=== PATIENT | female | born 1980 | race Caucasian/White ===

== ENCOUNTER 2025-07-27 09:31 | Outpatient (CLI) | payer OTHER, SELFPAY ==
--- NOTE | 2025-07-27 09:41 | ECG_ITS ---
Test Date: 2025-07-27 09:53:40 Measurements Intervals [place] Rate: 74 P: 61 RI: 173 QRS: 51 QRSD: 86 T: 22 QT: 359 QTc: 399 Interpretive Statements SINUS RHYTHM LOW QRS VOLTAGE IN PRECORDIAL LEADS BASELINE ARTIFACT- I, II, III, AVR, AVL, AVF, V1, V3-V6 BORDERLINE ECG No previous ECG available for comparison Electronically Signed On 07-27-2025 10:03:38 PACKING ROOM INSPECTOR by Blane Keating D.O.
[2025-07-27 10:25] LABS: Alanine Aminotransferase 20 U/L (6-35); Albumin Level 4.3 g/dL (3.5-5.1); Alkaline Phosphatase 104 U/L (38-126); Anion Gap 5 mmol/L (4-12); Aspartate Amino Transferase 26 U/L (14-36); Bilirubin,Total 0.4 mg/dL (0.2-1.3); Blood Urea Nitrogen 18 mg/dL (7-17); Calcium 8.9 mg/dL (8.4-10.2); Carbon Dioxide 24 mmol/L (22-30); Chloride 110 mmol/L (98-107); Estimated Glomerular Filt Rate > 60; Glucose 68 mg/dL (65-110); Potassium 3.6 mmol/L (3.4-5.0); Sodium 139 mmol/L (137-145); Total Protein 7.3 g/dL (6.3-8.2)
== END 2025-07-27 09:32 | disposition home or self-care (01) ==
LOC: ANHSURGERY 09:38
PROVIDERS: PCP Internal Medicine Infectious Disease; Visit Provider Obstetrics & Gynecology
DX: Z01.818 Encounter for other preprocedural examination (principal); R94.31 Abnormal electrocardiogram [ECG] [EKG]; N92.0 Excessive and frequent menstruation with regular cycle; I10 Essential (primary) hypertension
CPT/HCPCS: 36415; 80053; 86850; 86900; 86901; 93005

== ENCOUNTER 2025-07-31 03:26 | Day surgery (SDC) | payer OTHER, SELFPAY ==
[2025-07-25 13:01] VITALS: BMI 27.5
--- NOTE | 2025-07-25 13:16 | SUR.PREOP ---
[facility] has started construction of its new state of the art ER which will open Spring 2026. With this, we anticipate parking may be a challenge for some our surgical patients and families. Parking spaces are limited but are available for all Surgical, obstetrics, and ER patients sharing this lot. If you arrive and find you are having a hard time finding a parking space, please note that we understand the challenges, please drive around the hospital and park near Hospital Entrance 1. When you enter this entrance, you can ask a volunteer to direct or take you back to the surgical waiting area to check in. We appreciate everyone?s understanding of these expected challenges while we build for your future. Report to the Outpatient Waiting Room, entrance under the green pavilion located off [address], at time 6:00a.m on date 07/31/2025 Planned Procedure Time: 7:30a.m.? Time changes happen often and if your time is changed the preop area will call you the afternoon before. - You and your visitor will be asked to self-screen and do not enter if you have any COVID symptoms. Please call surgeon if you need to reschedule. - A mask is optional within the hospital at this time. Patients may have clear liquids (water, carbonated beverages, clear teas, apple juice) until 3 hours prior to surgery with a maximum of 20 ounces. - No food from midnight until time of surgery and no smoking, or chewing tobacco (or any form of nicotine). No chewing gum, candy or mints. Take only the following medications with a SIP of water on the morning of surgery: Nifedipine DO NOT STOP ANY OF YOUR OTHER PRESCRIPTION MEDICATIONS PRIOR TO SURGERY EXCEPT THE FOLLOWING Hold all vitamins and supplements for 3 days per anesthesiologist. Medications to discontinue per physician Womans Multivitamin Date to take last dose07/28/2025 Please no make-up, nail ecuadorean, hairspray, perfume, deodorant, or body powder the day of surgery.? No jewelry (including any body piercings) or valuables the day of surgery, leave them at home.? Please take a shower or bath the night before, or the morning of, surgery with an antibacterial soap.? Wear comfortable, loose fitting clothing.? Children are encouraged to wear pajamas. - Jewelry must be removed prior to entering the operating room.? Rings and piercings that are not removed may be cut off. - The hospital will not accept responsibility for valuables.? - Please leave all valuables, including medications, at home the day of surgery. If you are going home after surgery, a licensed personal driver must drive you home.? - NO public transportation without another adult if you receive anesthesia. - We recommend that an adult stay with you for 24 hours following discharge. - We also recommend that you do not drive, make important decision, drink alcoholic beverages, or take any drugs that were not prescribed by your health care provider for at least 24 hours after your discharge time. For Pediatric surgeries, we recommend two adults accompany the child home. Follow any additional instructions given to you from your surgeon. Telephone instructions given to Silvia Jesus and asked if any additional questions and then verbalized understanding. Patient advised to call surgeon office or pre surgery nurse liaison [phone] if any additional questions.
[2025-07-31] VITALS (20 sets, daily range): BP systolic 118–145; BP diastolic 60–91; PULSE 76–98; RESP 14–26; TEMP 36.2–36.8; O2SAT 93–100
--- OUTSIDE RECORDS SUMMARY | 2025-07-31 03:29 | XMS_ITS | Clinical Summary ---
Author Organization [facility] Address [address] [place] [id number] Care Team Providers Care Pharmacy Stock Clerk Name Role Phone Unavailable Primary Care Provider Unavailabl e Social History Tobacco Use Types Packs/Day Years Used Date Smoking Tobacco: Never Assessed Comments Unknown Sex and Gender Information Value Date Recorded Sex Assigned at Not on file Legal Sex Female 4:03 PM CDT Gender Identity Not on file Sexual Orientation Not on file Plan of Treatment Health Maintenance Due Date Last Done Comments Cervical Cancer Screening Pa p Smear (Age 30 to 64) Every 3 Years 1981 Annual Physical 02/25/1984 Hepatitis C 1999 DTaP, Tdap and Td Vaccines ( 1 - Tdap) 02/25/2000 Hepatitis B Vaccines (1 of 3 - 19+ 3-dose series) 02/25/2000 HPV Vaccines (1 - 3-dose SCD M series) 02/25/2008 Cervical Cancer Screening Pa p with HPV Testing (Age 30 to 64) Every 5 Years 2011 Cervical Cancer Screening with HPV 2011 Mammogram Screening 2021 COVID-19 Vaccine (2024-2 6 season) 2025 Influenza Adult (#1) 2025 Hepatitis A Vaccines Aged Out No long er eligible based on patient's age to complete this topic Meningococcal B Vaccine Aged Out No l onger eligible based on patient's age to complete this topic Meningococcal Vaccine Aged Out No geni gonzalez eligible based on patient's age to complete this topic Pneumococcal Vaccine: Pediat rics (0 to 5 Years) and At-Risk Patients (6 to 49 Years) Aged Out No longer eligible b ased on patient's age to complete this topic RSV Immunizations Under 20 Months Aged Out No longer eligible based on patient's age to complete this topic
--- OUTSIDE RECORDS SUMMARY | 2025-07-31 03:29 | XMS_ITS | Data Portability ---
Author Organization [facility] Address [address] [place] [address] [place] [address] Assessment Encounter Date Assessment Date Assessment LastModified by Organization Details LastModified Time 07/02/2025 07/02/2025 Annual gynecological exam performed. [email or web address] Not available 07/02/2025 16:19:10 Plan of Treatment Reminders Order Date Submit Date Provider Last Modified By Organization Details Last Modified Time Details Appointments Robotic TLH 2024 07:30A Maday GOMEZ MD Not available Not available Not available SURG POST OP 2024 09:15A Maday GOMEZ MD Not available Not available Not available Lab pap, IG + HR HPV - HPV regardles s but if HPV is positive need subtyping 16,18/45 2024 025 [facility] (Lab), [address], [place], [address], 07/05/2025 14:21:18 Referral breast surgery referral 2024 025 KALI Regan MD, [address], [facility], [place], [address], 07/25/2025 21:30:27 Procedures None recorded. Surgeries robotic assisted hysterect kodak with salpingec christiano (SURG) 2024 025 API-[id number] [facility], [address], [place], [address], 06/12/2025 19:26:49 Imaging US, pelvis 2024 025 [email or web address], [address], [place], [address], 07/18/2025 11:38:27 US, transvagi nal 2024 025 [email or web address], [address], [place], [address], 07/18/2025 11:38:27 Medication Orders None recorded. Patient TargetsNo targets recorded. Patient InstructionsNo instructions recorded. Reason for Referral Breast Surgery Referral for Mass of left breast Referring Physician: Sarah Soares, MANGLE CATCHER, Encounter Date: 07/02/2025 Results Created Date Observation Date Name Description Value Unit Range Abnormal Flag Note LastModifiedBy Organization Detail LastModifiedTime 07/02/2007/02/2025 IMAGE GUIDE D PAP AND HPV REGAR DLESS image guided Pap, HPV regardless of Pap result SEE RESULT S BELOW CASE REPOR T: Cytol ogy Gynec ologi sam Repor t Case: [id number] Autho rizin g Provi marah: Sarah Soares NP Colle cted: 07/02 1553 Order ing Locat ion: [place] [facility] Recei alexandre: 07/03 0742 First Scree n: Ashwini Hurtado , CT Speci men: Scree sidra Pap - Image d, Cervi x STATE MENT OF ADEQU ACY: Satis facto ry for evalu ation Trans forma tion zone compo nent prese nt ----- ----- ----- ----- ----- ----- ----- ----- ----- ----- ----- ----- ----- ----- ----- ----- ----- ---- FINAL DIAGN OSIS: Negat lonnie for Intra epith elial Lesio n or Milad jones (NIL) . Elect wendie moore d by Ashwini Hurtado , CT on 07/05 at 1308 CASING SOAKER ----- ----- ----- ----- ----- ----- ----- ----- ----- ----- ----- ----- ----- ----- ----- ----- ----- ---- HPV RESUL TS: HPV mRNA E6/E7 : No HPV mRNA Detec leandra NOTE: This high risk HPV mRNA assay detec ts fourt een high- risk HPV types (16, 18, 31, 33, 35, 39, 45, 51, 52, 56, 58, 59, 66, 68) witho ut diffe renti ation . COMME NT: This speci men was revie wed by a Cytot echno logis t and/o r Patho logis t (as indic ated in this repor t) after evalu ation using the Thinp rep Imagi ng Syste m. CLINI SAM INFOR MATIO N: Menst rual Statu s: LMP (if appli cable ): Clini sam Histo ry/Pr eviou s Pap: Type of Neopl violet (if appli cable ): Signi fican t Clini sam Findi ngs: Other Histo ry: Hormo peter (if appli cable ): PAP EDUCA ELIGIO L NOTE: The Pap Test is a scree sidra test with an inher ent false negat lonnie rate. Liqui d-bas ed sampl ing may decre ase, but will not elimi irvin, false negat lonnie resul ts. A negat lonnie resul t does not precl ude the prese nce and/o r devel opmen t of disea se, since the prese nce of abnor mal cells in the sampl e depen ds on the locat ion of the lesio n and sampl ing techn ique. [place] nued regul ar scree sidra is the best metho d of cance r preve ntion . If repor leandra cytol ogic findi ng do not corre late with physi sam and/o r histo rical findi ngs, fur er inves tigat ion is recom jeffery d, as clini huyen walker nted. Not Available [facility] (Lab) [address], [place], [address], 07/05/2025 14:21:18 07/17/2007/17/2025 US, pelvi s No observ ation record ed. [facility] [address], [place], [address], 07/17/2025 18:14:30 07/17/2007/17/2025 US, trans vagin al No observ ation record ed. [facility] [address], [place], [address], 07/17/2025 18:14:39 07/17/2007/17/2025 US, pelvi s No observ ation record ed. [email or web address] [address], [place], [address], 07/18/2025 16:29:15 Result Notes None recorded. Procedures Surgical History Date Name Laterality Status Provider Name and Address Organization Details Recorded Time 07/25/20 Date of Last Mammogram completed Mallory Starks [facility] 07/26/2025 12:04:00 excision of mass of neck completed [facility] 07/02/2025 11:16:24 section completed [facility] 07/02/2025 11:16:34 section completed [facility] 07/02/2025 11:16:40 tonsillectomy completed [facility] 07/02/2025 11:16:49 Imaging Results None recorded. Procedure Notes None recorded. Medical Equipment None Reported. Allergies Allergen ID Allergen Name Allergen Category Reaction Reaction Severity Criticality Documentation Date Start Date Code Code System Note Provider Name and Address Organization Details Recorded Time 61290 cyclobenz aprine hydrochlo ride medicatio n itching severe high 06/07/2025 58790 RxNorm Zunilda lisa [facility] 11:33:12 14379 tramadol medicatio n Not available Not available Not available 07/09/2025 65056 RxNorm Not Available kali [employer] External Data [employer] - prod 13:58:25 05956 cyclobenz aprine hydrochlo ride medicatio n itching severe high 07/09/2025 42642 RxNorm Not Available kali [employer] External [employer] - prod 13:58:25 96417 citalopra m medicatio n nausea mild high 07/09/20252015 2556 RxNorm Not Available glen jean [employer] External Data [employer] - prod 13:58:25 Medications Name Sig Start Date Stop Date Status Note LastModified by Organization Details LastModified Time atorvastatin 40 mg tablet Take 1 tablet every day by oral route. active Not Available Not Available No t Available nifedipine ER 60 mg tablet,extende d release Take 1 tablet every day by oral route. active Not Available Not Available No t Available escitalopram 20 mg tablet Take 1 tablet every day by oral route. active Not Available Not Available No t Available Vitals Date Recorded Body height Body mass index (BMI) Body weight Systolic And Diastolic Provider Name and Address Organization Details Last Updated DateTime 06/07/2025 172.72 cm 28.3 kg/m2 59765.18 g 140/85 mm[Hg] Zunilda Jean [facility] 06/07/2025 11:32:39 Date Recorded Body height Body mass index (BMI) Body weight Systolic And Diastolic Provider Name and Address Organization Details Last Updated DateTime 07/02/2025 172.72 cm 28 kg/m2 96686 g 161/93 mm[Hg] Giulia Liu [facility] 07/02/2025 11:06:32 Date Recorded Body height Body mass index (BMI) Body weight Systolic And Diastolic Provider Name and Address Organization Details Last Updated DateTime 07/26/2025 172.72 cm 28 kg/m2 87858 g 131/80 mm[Hg] Mallory Starks [facility] 07/26/2025 12:03:30 Date Recorded Body height Body mass index (BMI) Body weight Systolic And Diastolic Provider Name and Address Organization Details Last Updated DateTime 07/27/2025 172.72 cm 27.7 kg/m2 83402.81 g 151/88 mm[Hg] Mallory Atkinsoner [facility] 07/27/2025 09:58:17 Social History Question Answer Notes LastModified by Organizat ion Details LastModified Time Tobacco Smoking Status Former Smoker Zunilda Jean sloan, [facility] 06/07/2025 11:40:56 Do You Have An Advance Directive? No [email or web address] Information n ot available 06/07/2025 Are You Blind Or Do You Have Difficulty Seeing? No [email or web address] Information n ot available 06/07/2025 What Is Your Level Of Caffeine Consumption? Moderate [email or web address] Information not available 06/07/2025 In The 14 Days Before Symptom Onset, Have You Had Close Contact With A Laboratory-confirm ed COVID-19 While That Case Was Ill? No Information n ot available 06/07/2025 In The 14 Days Before Symptom Onset, Have You Had Close Contact With A Person Who Is Under Investigation For COVID-19 While That Person Was Ill? No [email or web address] Information not available 06/07/2025 Have You Been To An Area Known To Be High Risk For COVID-19? No Information not available 06/07/2025 Are You Deaf Or Do You Have Serious Difficulty Hearing? No [email or web address] Information not available 06/07/2025 What Type Of Diet Are You Following? REGULAR [email or web address] Information n ot available 06/07/2025 What Is The Highest Grade Or Level Of School You Have Completed Or The Highest Degree You Have Received? PS32266-0 [email or web address] Information not available 06/07/2025 Are There Any Guns Present In Your Home? No [email or web address] Information not available 06/07/2025 What Is Your Current Pack Years? [email or web address] Information not available 06/07/2025 Do You Use Protection During Sex? No [email or web address] Information not available 06/07/2025 Do You Use Your Seat Belt Or Car Seat Routinely? Yes Information not available 06/07/2025 Are You Sexually Active? Yes [email or web address] Information not available 06/07/2025 Do You Have Smoke And Carbon Monoxide Detectors In Your Home? Yes [email or web address] Information not available 06/07/2025 At What Age Did You Start Smoking Tobacco? 13 [email or web address] Information not available 06/07/2025 How Much Tobacco Do You Smoke? 0.5 PPD [email or web address] Information not available 06/07/2025 Do You Use Sunscreen Routinely? Yes [email or web address] Information not available 06/07/2025 Has Tobacco Cessation Counseling Been Provided? No [email or web address] Information not available 06/07/2025 How Many Years Have You Smoked Tobacco? 30 [email or web address] Information not available 06/07/2025 Do You Have Difficulty Walking Or Climbing Stairs? No Information not available 06/07/2025 Sex: Unknown Functional Status Question Answer Note LastModified by Organizat ion Details LastModified Time Do you use any illicit or recreational drugs? No [email or web address] Information not available 06/07/2025 Do you or have you ever used any other forms of tobacco or nicotine? No Information not available 06/07/2025 What is your level of alcohol consumption? None [email or web address] Information not available 06/07/2025 Are you currently employed? No [email or web address] Information not available 06/07/2025 Are you able to walk independently without assistance or assistive devices? YESWOREST [email or web address] Information not available 06/07/2025 Are you able to care for yourself independently? Yes [email or web address] Information not available 06/07/2025 Do you have difficulty dressing, bathing, grooming, or toileting? No [email or web address] Information not available 06/07/2025 Mental Status Question Answer Note LastModified by Organization D etails LastModified Time Do you feel stressed (tense, restless, nervous, or anxious, or unable to sleep at night)? [id number] [email or web address] Information not available 06/07/2025 Family History Relationship Description Onset Age of this Age Resolved Age Notes LastModified by Organization Details LastModified Time Maternal Aunt Malignant neoplasm of breast [email or web address] Not available 2024 11:14:15 Mother Malignant neoplasm of colon Not available 2024 11:14:28 Maternal Grandmother Malignant neoplasm of colon Not available 2024 11:14:28 Paternal Grandmother Myocardial infarction Not available 07/02 11:15:07 Father Schizophreni a Not available 2024 11:15:17 Medical History Condition Response Anxiety Disorder Y High Cholesterol Y Depression/ depression Y Heart Disease Y Hypertension Y Gynecological History Statement/Question Response Abnormal Pap N Flow Heavy Date of Last Mammogram 07/25/2025 Date of LMP 07/21/2025 On BCP's at Conception? N STIs/STDs N Was last menstrual period normal N HPV Vaccine N Duration of Flow (days) 6 Current Control Method None Age at First Child 20 Are cycles usually normal N Date of Last Colonoscopy Frequency of Cycle (Q days) 28 Most Recent Bone Density Sexually Active? Y Menses Monthly Y Date of DEXA bone scan Age of first menstrual cycle 13 Date of Last Pap Smear Sexual Problems? N LMP Approximate Obstetrics History GPAL:G 4 P 2 0 2 2 Type Value Full Term 2 Spontaneous 2 Living 2 Total 4 Past Encounters Encounter ID Performer Location Encounter Start Date Encounter Closed Date Diagnosis/Indication Diagnosis SNOMED-CT Code Diagnosis ICD10 Code Diagnosis IMO Codes Diagnosis Note [id number] Eugenio Gomez MD [place] [address] [address] 06/07/2025 11:16:04 06/07/2025 12:07:48 Menorrhagia 353783300 N92.0 [id number] This patient is a 45-year-ol d female presents for heavy vaginal bleeding. She has longstandi ng very heavy bleeding. Her menses are regular. However, they require double protection . Patient has accidents, getting blood on her bedding and clothing. Is affected work. She changes a pad or tampon every hour. She leaks blood around the pad and tampon. This bleeding has a profound impact on her quality of life and her activities of daily living. WE DISCUSSED TREATMENT OPTIONS IN DETAIL. We discussed medical treatment options. She has already failed some medical treatment options to include control pills. Patient would like definitive surgical treatment. This profoundly affects her quality of life and activities daily living. She would like to move forward with hysterecto my and she would like to keep her ovaries. We agreed to robotic assisted hysterecto my with bilateral salpingect kodak. The patient understand s the procedure. The procedure was described to the patient in great detail. the patient also understand s the risks. The risks were also explained in detail. She understand s that injuries May occur during surgery. She understand s these injuries can result in hospitaliz ation, more surgery, and severe illness. She understand s there is risk of hemorrhage and infection. I spent over 30 minutes on the patient's care in total [id number] МАРИНА Luciano [place] [address] [address] 07/02/2025 10:51:23 07/02/2025 16:23:42 Gynecologic examination [id number] Z01.850 [id number] EB - declined, she is scheduled for TLH, BS with Dr. Martinez -done todaySTI screen - declinedMa mmogram - UTCTolon cancer screening - n/aRoutine labs - PCPBP precaution s discussed , encouraged PCP f/uRTC in 1 yr or sooner if needed Suggested Calcium with Vitamin D daily. Patient advised to get an annual flu shot in the fall and she could obtain at local pharmacy. Also to obtain TDap vaccinatio n if you have not had one in the last 10 years. Recommend yearly mammograms . Encouraged monthly self breast exams. Encourage safe sexual practices, to use condoms and limit partners if not already in a monogamous relationsh ip. Engage in regular exercise. Avoid tobacco and illicit drugs. This lifestyle behavior pattern will lead to less health conditions and longer life span. If BMI greater than 25 dietary consult advised. All questions have been answered. Mass of left breast 1224 [id number] N63.20 [id number] Records request faxed for recent diagnostic breast imagingref erral placed to breast specialist [id number] Eugenio Gomez MD [place] [address] [address] 07/17/2025 15:28:51 07/17/2025 16:23:32 Menorrhagia [id number] N92.0 [id number] This patient is a 45-year-ol d female presents for heavy vaginal bleeding. She has longstandi ng very heavy bleeding. Her menses are regular. However, they require double protection . Patient has accidents, getting blood on her bedding and clothing. Is affected work. She changes a pad or tampon every hour. She leaks blood around the pad and tampon. This bleeding has a profound impact on her quality of life and her activities of daily living. WE DISCUSSED TREATMENT OPTIONS IN DETAIL. We discussed medical treatment options. She has already failed some medical treatment options to include control pills. Patient would like definitive surgical treatment. This profoundly affects her quality of life and activities daily living. She would like to move forward with hysterecto my and she would like to keep her ovaries. We agreed to robotic assisted hysterecto my with bilateral salpingect kodak. The patient understand s the procedure. The procedure was described to the patient in great detail. the patient also understand s the risks. The risks were also explained in detail. She understand s that injuries May occur during surgery. She understand s these injuries can result in hospitaliz ation, more surgery, and severe illness. She understand s there is risk of hemorrhage and infection. I spent over 30 minutes on the patient's care in total [id number] Eugenio Gomez MD [place] [address] [address] 07/26/2025 11:31:54 07/27/2025 16:57:13 [id number] Eugenio Gomez MD [place] [address] [address] 07/27/2025 09:42:58 07/27/2025 11:30:30 Menorrhagia [id number] N92.0 [id number] This patient is a 45-year-ol d female with severe menorrhagi a. We have agreed to perform robotic assisted hysterecto my and bilateral salpingect kodak. She understand s the risks, benefits, and alternativ es. She has completed the informed consent process and is ready to proceed. Health Concerns Section Related Observation LastModified by Organization Petey garcía LastModified Time None Recorded Concern Status LastModified by Organization Details LastModified Time None Recorded Advance Directives Directive N: Payers Insurance Date Sequence Insurance Name Policy Number Policy Guzmán Covered Member ID Guzmán Member ID Guarantor Name 07/30/2025 1 [facility] - DOS ON OR AFTER 21 (MEDICAID REPLACEMENT - HMO) Silviabryce Jesus [id number] Silvia Acup Notes Date Note Type Note Provider Name and Address Organization Details Recorded Time 5 text/html This patient is a 45-year-old female presents for heavy vaginal bleeding. She has longstanding very heavy bleeding. Her menses are regular. However, they require double protection. Patient has accidents, getting blood on her bedding and clothing. Is affected work. She changes a pad or tampon every hour. She leaks blood around the pad and tampon. This bleeding has a profound impact on her quality of life and her activities of daily living. WE DISCUSSED TREATMENT OPTIONS IN DETAIL. We discussed medical treatment options. She has already failed some medical treatment options to include control pills. Patient would like definitive surgical treatment. This profoundly affects her quality of life and activities daily living. She would like to move forward with hysterectomy and she would like to keep her ovaries. We agreed to robotic assisted hysterectomy with bilateral salpingectomy. The patient understands the procedure. The procedure was described to the patient in great detail. the patient also understands the risks. The risks were also explained in detail. She understands that injuries May occur during surgery. She understands these injuries can result in hospitalization, more surgery, and severe illness. She understands there is risk of hemorrhage and infection. I spent over 30 minutes on the patient's care in total Eugenio Gomez MD [address], [place], [address], [facility] 06/07/2025 12:04:36 5 text/html Annual GYNReported by PatientGenitourinary symptomsFor menstrual cycle, patient reportsnormal menses. For urinary symptoms, patient reportsno hematuriaandno incontinence. For vulva, patient reportsno genital lesion. For vagina, patient reportsnormal vaginal discharge.Breast symptomsFor breast, patient reportsno breast pain,no breast lump, andno nipple discharge.Endocrine symptomsFor sexual complaints, patient reportsno sexual complaints,no pain during intercourse, andnormal libido. For menopausal symptoms, patient reportsno menopausal symptomsandnormal vaginal lubrication.Psychological symptomsFor psychological symptoms, patient reportsno depression,no anxiety, andno pmdd.Preventative measuresFor preventive measures, patient reportsencourage self breast examination,encourage regular exercise,encourage no tobacco use, andencourage regular mammograms starting age 40.45yo Geraldine is unsure when her last pap smear wasPlanning DEV, BS with Dr. Gomez next month for AUB - periods heavy/painful She had diagnostic breast imaging done 03/2023 (told bilateral breast cyst and to f/u with breast specialist) needs referral. МАРИНА Luciano [address], [place], [address], [facility] 07/02/2025 16:20:54 5 text/html This patient is a 45-year-old female with severe menorrhagia. We have agreed to perform robotic assisted hysterectomy and bilateral salpingectomy. She understands the risks, benefits, and alternatives. She has completed the informed consent process and is ready to proceed. The patient understands the procedure. The procedure was described to the patient in great detail. the patient also understands the risks. The risks were also explained in detail. She understands that injuries May occur during surgery. She understands these injuries can result in hospitalization, more surgery, and severe illness. She understands there is risk of hemorrhage and infection. Eugenio Gomez MD [address], [place], [address], [facility] 07/27/2025 11:04:44 OBGyn Episode Ob Episode Information Episode Created Date Number of Fetuses Patient Bloodtype Patient rh Status Prepregnancy Weight lbs Domestic Partner Domestic Partner Phone Father Name [employer] Status 06/07/20 25 1 CLOSED Fetus Data First Name Last Name Admitted to NICU Weight (g) Sex Living Outcome Pediatric Complications Fetus ID Race Codes Race Delivery Type 2267.96 F Full Term [id number] Primary Tomás Calculation Initial Tomás Date Initial Exam Date Initial Exam Provider Initial Ultrasound Date Last Menstrual Period Date Ultra Sound Weeks Gestation 0 Eighteen To Twenty Week Tomás Update Ultra Sound Date Fundal Height At Umbil Quickening Date Ultra Sound Latest Weeks Gestation Final Tomás Confirmed By Final Tomás Confirmed Date Final Tomás Date Ultra Sound Latest Days Gestation 0 0 Menstrual History Last Menstrual Date Menses Monthly On Bcp Conception Prior Menses Frequency Hcg Plus Date Menarche Onset Age Delivery Information Delivery Date Delivery Type Labor Anesthesia Weeks Gestation Incision Type Labor Labor Length Hrs Delivered By Post Complications Tubal Sterilization Discharge Date Comments 1 false Discharge Information Feeding Method Contraceptive Method Maternal HG B and HCT Levels Ob Episode Information Episode Created Date Number of Fetuses Patient Bloodtype Patient rh Status Prepregnancy Weight lbs Domestic Partner Domestic Partner Phone Father Name [employer] Status 07/02/20 25 1 CLOSED Fetus Data First Name Last Name Admitted to NICU Weight (g) Sex Living Outcome Pediatric Complications Fetus ID Race Codes Race Delivery Type , Spontane ous [id number] Tomás Calculation Initial Tomás Date Initial Exam Date Initial Exam Provider Initial Ultrasound Date Last Menstrual Period Date Ultra Sound Weeks Gestation 0 Eighteen To Twenty Week Tomás Update Ultra Sound Date Fundal Height At Umbil Quickening Date Ultra Sound Latest Weeks Gestation Final Tomás Confirmed By Final Tomás Confirmed Date Final Tomás Date Ultra Sound Latest Days Gestation 0 0 Menstrual History Last Menstrual Date Menses Monthly On Bcp Conception Prior Menses Frequency Hcg Plus Date Menarche Onset Age Delivery Information Delivery Date Delivery Type Labor Anesthesia Weeks Gestation Incision Type Labor Labor Length Hrs Delivered By Post Complications Tubal Sterilization Discharge Date Comments 7 Discharge Information Feeding Method Contraceptive Method Maternal HG B and HCT Levels Ob Episode Information Episode Created Date Number of Fetuses Patient Bloodtype Patient rh Status Prepregnancy Weight lbs Domestic Partner Domestic Partner Phone Father Name [employer] Status 06/07/20 25 1 CLOSED Fetus Data First Name Last Name Admitted to NICU Weight (g) Sex Living Outcome Pediatric Complications Fetus ID Race Codes Race Delivery Type 793.786 [place] Prematur [place] 83472 Vaginal Delivery Tomás Calculation Initial Tomás Date Initial Exam Date Initial Exam Provider Initial Ultrasound Date Last Menstrual Period Date Ultra Sound Weeks Gestation 0 Eighteen To Twenty Week Tomás Update Ultra Sound Date Fundal Height At Umbil Quickening Date Ultra Sound Latest Weeks Gestation Final Tomás Confirmed By Final Tomás Confirmed Date Final Tomás Date Ultra Sound Latest Days Gestation 0 0 Menstrual History Last Menstrual Date Menses Monthly On Bcp Conception Prior Menses Frequency Hcg Plus Date Menarche Onset Age Delivery Information Delivery Date Delivery Type Labor Anesthesia Weeks Gestation Incision Type Labor Labor Length Hrs Delivered By Post Complications Tubal Sterilization Discharge Date Comments 1 28 true Discharge Information Feeding Method Contraceptive Method Maternal HG B and HCT Levels Ob Episode Information Episode Created Date Number of Fetuses Patient Bloodtype Patient rh Status Prepregnancy Weight lbs Domestic Partner Domestic Partner Phone Father Name [employer] Status 06/07/20 25 1 CLOSED Fetus Data First Name Last Name Admitted to NICU Weight (g) Sex Living Outcome Pediatric Complications Fetus ID Race Codes Race Delivery Type 2721.55 2 M Prematur e 15704 Repeat Tomás Calculation Initial Tomás Date Initial Exam Date Initial Exam Provider Initial Ultrasound Date Last Menstrual Period Date Ultra Sound Weeks Gestation 0 Eighteen To Twenty Week Tomás Update Ultra Sound Date Fundal Height At Umbil Quickening Date Ultra Sound Latest Weeks Gestation Final Tomás Confirmed By Final Tomás Confirmed Date Final Tomás Date Ultra Sound Latest Days Gestation 0 0 Menstrual History Last Menstrual Date Menses Monthly On Bcp Conception Prior Menses Frequency Hcg Plus Date Menarche Onset Age Delivery Information Delivery Date Delivery Type Labor Anesthesia Weeks Gestation Incision Type Labor Labor Length Hrs Delivered By Post Complications Tubal Sterilization Discharge Date Comments 0 true Discharge Information Feeding Method Contraceptive Method Maternal HG B and HCT Levels
--- OUTSIDE RECORDS SUMMARY | 2025-07-31 03:29 | XMS_ITS | Continuity of Care Document ---
Author Organization [facility] Address [address] [place] [address] Assessment No assessment recorded. Plan of Treatment Reminders Order Date Submit Date Provider Last Modified By Organization Details Last Modified Time Details Appointments Robotic TLH 2024 07:30A Maday GOMEZ MD Not available Not available Not available SURG POST OP 2024 09:15A Maday GOMEZ MD Not available Not available Not available Lab None recorded . Referral None recorded . Procedures None recorded . Surgeries None recorded . Imaging None recorded . Medication Orders None recorded . Patient TargetsNo targets recorded. Patient InstructionsNo instructions recorded. Reason for Referral None Reported. Results Created Date Observation Date Name Description Value Unit Range Abnormal Flag Note LastModifiedBy Organization Detail LastModifiedTime 07/02/20 25 07/02/2025 IMAGE GUIDE D PAP AND HPV REGAR DLESS image guided Pap, HPV regardless of Pap result SEE RESULT S BELOW CASE REPOR T: Cytol ogy Gynec ologi sam Repor t Case: [id number] Autho marcell stone Provi marah: Sarah Soares, JEFFERSON Colle cted: 07/02 1553 Order ing Locat ion: [place] [facility] Recei alexandre: 07/03 0742 First Scree n: Vishnu r, Ashwini , CT Speci men: Scree sidra Pap - Image d, Cervi x STATE MENT OF ADEQU ACY: Satis facto ry for evalu ation Trans forma tion zone compo nent prese nt ----- ----- ----- ----- ----- ----- ----- ----- ----- ----- ----- ----- ----- ----- ----- ----- ----- ---- FINAL DIAGN OSIS: Negat lonnie for Intra epith elial Lesio amrik or Milad jones (NIL) . Elect wendie moore d by Ashwini Hurtado , CT on 07/05 at 1308 [employer] [employer] TENDER ----- ----- ----- ----- ----- ----- ----- [...] sam and/o r histo rical findi ngs, furth er inves tigat ion is recom jeffery d, as clini huyen walker nted. Not Available [facility] (Lab) [address], [place], [address], 07/05/2025 14:21:18 07/17/2007/17/2025 US, pelvi s No observ ation record ed. [facility] [address], [place], [address], 07/17/2025 18:14:30 07/17/2007/17/2025 US, trans vagin al No observ ation record ed. [facility] [address], [place], [address], 07/17/2025 18:14:39 07/17/2007/17/2025 US, pelvi s No observ ation record ed. [email or web address] [address], [place], [address], 07/18/2025 16:29:15 Result Notes None recorded. Procedures Surgical History Date Name Laterality Status Provider Name and Address Organization Details Recorded Time 07/25/20 Date of Last Mammogram completed Mallory Starks [facility] 07/26/2025 12:04:00 excision of mass of neck completed [facility] 07/02/2025 11:16:24 section completed [facility] 07/02/2025 11:16:34 section completed [facility] 07/02/2025 11:16:40 tonsillectomy completed Giulia Liu [facility] 07/02/2025 11:16:49 Imaging Results None recorded. Procedure Notes None recorded. Medical Equipment None Reported. Allergies Allergen ID Allergen Name Allergen Category Reaction Reaction Severity Criticality Documentation Date Start Date Code Code System Note Provider Name and Address Organization Details Recorded Time 11862 cyclobenz aprine hydrochlo ride medicatio n itching severe high 06/07/2025 59933 RxNorm Zunilda lisa [facility] 11:33:12 49597 tramadol medicatio n Not available Not available Not available 07/09/2025 49348 RxNorm Not Available [employer] - prod 13:58:25 66989 cyclobenz aprine hydrochlo ride medicatio n itching severe high 07/09/2025 09150 RxNorm Not Available [employer] - prod 13:58:25 74315 citalopra m medicatio n nausea mild high 07/09/20252015 2556 RxNorm Not Available [employer] - [employer] 13:58:25 Medications Name Sig Start Date Stop [...] Updated DateTime 07/26/2025 172.72 cm 28 kg/m2 30751 g 131/80 mm[Hg] Mallory Starks [facility] 07/26/2025 12:03:30 Date Recorded Body height Body mass index (BMI) Body weight Systolic And Diastolic Provider Name and Address Organization Details Last Updated DateTime 07/27/2025 172.72 cm 27.7 kg/m2 78504.81 g 151/88 mm[Hg] Mallory Starks [facility] 07/27/2025 09:58:17 Social History Question Answer Notes LastModified by Organizat ion Details LastModified Time Tobacco Smoking Status Former Smoker Zunilda Jean sloan, [facility] 06/07/2025 11:40:56 Do You Have An Advance Directive? No [email or web address] Information n ot available 06/07/2025 Are You Blind Or Do You Have Difficulty Seeing? No [email or web address] Information n ot available 06/07/2025 What Is Your Level Of Caffeine Consumption? Moderate Information not available 06/07/2025 In The 14 Days Before Symptom Onset, Have You Had Close Contact With A Laboratory-confirm ed COVID-19 While That Case Was Ill? No [email or web address] Information n ot available 06/07/2025 In The 14 Days Before Symptom Onset, Have You Had Close Contact With A Person Who Is Under Investigation For COVID-19 While That Person Was Ill? No [email or web address] Information not available 06/07/2025 Have You Been To An Area Known To Be High Risk For COVID-19? No [email or web address] Information not available 06/07/2025 Are You Deaf Or Do You Have Serious Difficulty Hearing? No [email or web address] Information not available 06/07/2025 What Type Of Diet Are You Following? REGULAR [email or web address] Information n ot available 06/07/2025 What Is The Highest Grade Or Level Of School You Have Completed Or The Highest Degree You Have Received? [id number] [email or web address] Information not available 06/07/2025 Are There Any Guns Present In Your Home? No Information not available 06/07/2025 What Is Your Current Pack Years? 30ormorepacky ears Information not available 06/07/2025 Do You Use Protection During Sex? No [email or web address] Information not available 06/07/2025 Do You Use Your Seat Belt Or Car Seat Routinely? Yes Information not available 06/07/2025 Are You Sexually Active? Yes [email or web address] Information not available 06/07/2025 Do You Have Smoke And Carbon Monoxide Detectors In Your Home? Yes [email or web address] Information not available 06/07/2025 At What Age Did You Start Smoking Tobacco? 13 [email or web address] Information not available 06/07/2025 How Much Tobacco Do You Smoke? 0.5 PPD [email or web address] Information not available 06/07/2025 Do You Use Sunscreen Routinely? Yes [email or web address] Information not available 06/07/2025 Has Tobacco Cessation Counseling Been Provided? No Information not available 06/07/2025 How Many Years Have You Smoked Tobacco? 30 Information not available 06/07/2025 Do You Have Difficulty Walking Or Climbing Stairs? No Information not available 06/07/2025 Sex: Unknown Functional Status Question Answer Note LastModified by Organizat ion Details LastModified Time Do you use any illicit or recreational drugs? No [email or web address] Information not available 06/07/2025 Do you or have you ever used any other forms of tobacco or nicotine? No [email or web address] Information not available 06/07/2025 What is your level of alcohol consumption? None Information not available 06/07/2025 Are you currently employed? No [email or web address] Information not available 06/07/2025 Are you able to walk independently without assistance or assistive devices? YESWOREST [email or web address] Information not available 06/07/2025 Are you able to care for yourself independently? Yes Information not available 06/07/2025 Do you have difficulty dressing, bathing, grooming, or toileting? No Information not available 06/07/2025 Mental Status Question Answer Note LastModified by Organization D etails LastModified Time Do you feel stressed (tense, restless, nervous, or anxious, or unable to sleep at night)? [id number] debcxl18 Information not available 06/07/2025 Family History Relationship Description Onset Age of this Age Resolved Age Notes LastModified by Organization Details LastModified Time Maternal Aunt Malignant neoplasm of breast [email or web address] Not available 2024 11:14:15 Mother Malignant neoplasm of colon [email or web address] Not available 2024 11:14:28 Maternal Grandmother Malignant neoplasm of colon [email or web address] Not available 2024 11:14:28 Paternal Grandmother Myocardial infarction Not available 07/02 11:15:07 Father Schizophreni a [email or web address] Not available 2024 11:15:17 Medical History Condition Response Anxiety Disorder Y Heart Disease Y Hypertension Y High Cholesterol Y Depression/ depression Y Gynecological History Statement/Question Response Abnormal Pap [...] ICD10 Code Diagnosis IMO Codes Diagnosis Note [id number] МАРИНА Luciano [place] [address] [address] 07/02/2025 10:51:23 07/02/2025 16:23:42 Gynecologic examination 45201405 Z01.405 [id number] WWEBC - declined, she is scheduled for TLH, BS with Dr. Martinez -done todaySTI screen - declinedMa mmogram - UTDColon cancer screening - n/aRoutine labs - PCPBP [...] been answered. Mass of left breast 1224 127588 2203121 N63.20 [id number] Records request faxed for recent diagnostic breast imagingref erral placed to breast specialist [id number] Eugenio Gomez MD [place] [address] [address] 07/17/2025 15:28:51 07/17/2025 16:23:32 Menorrhagia 503039428 N92.0 [id number] This patient is a 45-year-ol d female [...] minutes on the patient's care in total [id number] Eugenio Gomez MD [place] [address] [address] 07/26/2025 11:31:54 07/27/2025 16:57:13 Health Concerns Section Related Observation LastModified by Organization Detai ls LastModified Time None Recorded Concern Status LastModified by Organization Details LastModified Time None Recorded Payers Encounter Date Sequence Insurance Name Policy Number Policy Guzmán Covered Member ID Guzmán Member ID Guarantor Name 07/26/2025 1 [facility] ON OR AFTER 02/20/21 (MEDICAID REPLACEMENT - HMO) Silvia Acup [id number] Silvia Jesus Notes Date Note Type Note Provider Name and Address Organization Details Recorded Time 07/27/2025 text/html This patient is a 45-year-old female [...] infection. Eugenio Gomez MD [address], [place], [address], [facility] 07/27/2025 11:04:44 OBGyn Episode No OBEpisode recorded.
--- OUTSIDE RECORDS SUMMARY | 2025-07-31 03:29 | XMS_ITS | Continuity of Care Document ---
Author Organization [facility] Address [address] [place] [address] Assessment No assessment recorded. Plan of Treatment Reminders Order Date Submit Date Provider Last Modified By Organization Details Last Modified Time Details Appointments Robotic TLH 2024 07:30A Maday MCCRARY MD Not available Not available Not available SURG POST OP 2024 09:15A Maday MCCRARY MD Not available Not available Not available Lab None recorded. Referral None recorded. Procedures None recorded. Surgeries robotic assisted hysterect k[place] with salpingec christiaon (SURG) 2024 025 API-830 [facility], [address], [place], [address], 06/12/2025 19:26:49 Imaging None recorded. Medication Orders None recorded. Patient TargetsNo targets recorded. Patient InstructionsNo instructions recorded. Reason for Referral None Reported. Results Created Date Observation Date Name Description Value Unit Range Abnormal Flag Note LastModifiedBy Organization Detail LastModifiedTime 07/17/2007/17/2025 , pelpaola s No observ ation record ed. [facility] [address], [place], [address], 07/17/2025 18:14:30 07/17/2007/17/2025 US, stephanie aguirre al No observ ation record ed. [facility] [address], [place], [address], 07/17/2025 18:14:39 07/17/2007/17/2025 US, ernesto weiner No observ ation record ed. [email or web address], [place], [address], 07/18/2025 16:29:15 Result Notes None recorded. Procedures Surgical History Date Name Laterality Status Provider Name and Address Organization Details Recorded Time 07/25/20 Date of Last Mammogram completed Mallory Starks [facility] 07/26/2025 12:04:00 excision of mass of neck completed [facility] 07/02/2025 11:16:24 section completed [facility] 07/02/2025 11:16:34 section completed [facility] 07/02/2025 11:16:40 tonsillectomy completed [facility] 07/02/2025 11:16:49 Imaging Results None recorded. Procedure Notes None recorded. Medical Equipment None Reported. Allergies Allergen ID Allergen Name Allergen Category Reaction Reaction Severity Criticality Documentation Date Start Date Code Code System Note Provider Name and Address Organization Details Recorded Time 33928 cyclobenz aprine hydrochlo ride medicatio n itching severe high 06/07/2025 22224 RxNorm [facility] 11:33:12 49988 tramadol medicatio n Not available Not available Not available 07/09/2025 74055 RxNorm Not Available [employer] - prod 13:58:25 26101 cyclobenz aprine hydrochlo ride medicatio n itching severe high 07/09/2025 59407 RxNorm Not Available [employer] - [employer] - prod 13:58:25 77451 citalopra m medicatio n nausea mild high 07/09/20252015 2556 RxNorm Not Available [employer] - [employer] - prod 13:58:25 Medications [...] Updated DateTime 06/07/2025 172.72 cm 28.3 kg/m2 64215.18 g 140/85 mm[Hg] Zunilda Jean [facility] 06/07/2025 11:32:39 Social History Question Answer Notes LastModified by Organizat ion Details LastModified Time Tobacco Smoking Status Former Smoker Zunilda Jean [facility] 06/07/2025 11:40:56 Do You Have An Advance Directive? No Information n ot available 06/07/2025 Are You Blind Or Do You Have Difficulty Seeing? No Information n ot available 06/07/2025 What Is Your Level Of Caffeine Consumption? Moderate [email or web address] Information not available 06/07/2025 In The 14 Days Before Symptom Onset, Have You Had Close Contact With A Laboratory-confirm ed COVID-19 While That Case Was Ill? No [email or web address] Information n ot available 06/07/2025 In The 14 Days Before Symptom Onset, Have You Had Close Contact With A Person Who Is Under Investigation For COVID-19 While That Person Was Ill? No [email or web address] Information not available 06/07/2025 Have You Been To An Area Known To Be High Risk For COVID-19? No Information not available 06/07/2025 Are You Deaf Or Do You Have Serious Difficulty Hearing? No Information not available 06/07/2025 What Type Of Diet Are You Following? REGULAR [email or web address] Information n ot available 06/07/2025 What Is The Highest Grade Or Level Of School You Have Completed Or The Highest Degree You Have Received? ZS60904-5 vcawrv70 Information not available 06/07/2025 Are There Any Guns Present In Your Home? No [email or web address] Information not available 06/07/2025 What Is Your Current Pack Years? 30ormorepacky ears [email or web address] Information not available 06/07/2025 Do You Use Protection During Sex? No [email or web address] Information not available 06/07/2025 Do You Use Your Seat Belt Or Car Seat Routinely? Yes [email or web address] Information not available 06/07/2025 Are You Sexually Active? Yes Information not available 06/07/2025 Do You Have Smoke And Carbon Monoxide Detectors In Your Home? Yes [email or web address] Information not available 06/07/2025 At What Age Did You Start Smoking Tobacco? 13 lposrq31 Information not available 06/07/2025 How Much Tobacco Do You Smoke? 0.5 PPD [email or web address] Information not available 06/07/2025 Do You Use Sunscreen Routinely? Yes [email or web address] Information not available 06/07/2025 Has Tobacco Cessation Counseling Been Provided? No [email or web address] Information not available 06/07/2025 How Many Years Have You Smoked Tobacco? 30 [email or web address] Information not available 06/07/2025 Do You Have Difficulty Walking Or Climbing Stairs? No Information not available 06/07/2025 Sex: Unknown Functional Status Question Answer Note LastModified by Organizat ion Details LastModified Time Do you use any illicit or recreational drugs? No [email or web address] Information not available 06/07/2025 Do you or have you ever used any other forms of tobacco or nicotine? No uhvpxs08 Information not available 06/07/2025 What is your level of alcohol consumption? None [email or web address] Information not available 06/07/2025 Are you currently employed? No [email or web address] Information not available 06/07/2025 Are you able to walk independently without assistance or assistive devices? YESWOREST Information not available 06/07/2025 Are you able to care for yourself independently? Yes [email or web address] Information not available 06/07/2025 Do you have difficulty dressing, bathing, grooming, or toileting? No [email or web address] Information not available 06/07/2025 Mental Status Question Answer Note LastModified by Organization D etails LastModified Time Do you feel stressed (tense, restless, nervous, or anxious, or unable to sleep at night)? [id number] [email or web address] Information not available 06/07/2025 Family History Relationship Description Onset Age of this Age Resolved Age Notes LastModified by Organization Details LastModified Time Maternal Aunt Malignant neoplasm of breast [email or web address] Not available 2024 11:14:15 Mother Malignant neoplasm of colon Not available 2024 11:14:28 Maternal Grandmother Malignant neoplasm of colon [email or web address] Not available 2024 11:14:28 Paternal Grandmother Myocardial infarction [email or web address] Not available 07/02 11:15:07 Father Schizophreni a [email or web address] Not available 2024 11:15:17 Medical History Condition [...] ICD10 Code Diagnosis IMO Codes Diagnosis Note [id number] Eugenio Mccrary MD [place] [address] [address] 06/07/2025 11:16:04 06/07/2025 12:07:48 Menorrhagia [id number] N92.0 [id number] This patient is a 45-year-ol d female [...] minutes on the patient's care in total Health Concerns Section Related Observation LastModified by Organization Detai ls LastModified Time None Recorded Concern Status LastModified by Organization Details LastModified Time None Recorded Payers Encounter Date Sequence Insurance Name Policy Number Policy Guzmán Covered Member ID Guzmán Member ID Guarantor Name 06/07/2025 1 [facility] - DOS ON OR AFTER 21 (MEDICAID REPLACEMENT - HMO) Silvia Acup [id number] Silvia Acup Notes Date Note Type Note Provider Name and Address Organization Details Recorded Time 06/07/2025 text/html This patient is a 45-year-old female [...] on the patient's care in total Eugenio Mccrary MD [address], [place], [address], [facility] 06/07/2025 12:04:36 OBGyn Episode No OBEpisode recorded.
--- OUTSIDE RECORDS SUMMARY | 2025-07-31 03:29 | XMS_ITS | Continuity of Care Document ---
Author Organization [facility] [place] Address [address] [place] [address] Assessment No assessment recorded. Plan of Treatment Reminders Order Date Submit Date Provider Last Modified By Organization Details Last Modified Time Details Appointments Robotic TLH 2024 07:30A Maday MCCRARY MD Not available Not available Not available SURG POST OP 2024 09:15A Maday MCCRARY MD Not available Not available Not available Lab None recorded. Referral None recorded. Procedures None recorded. Surgeries None recorded. Imaging US, pelvis [id number], [address], [place], [address], 07/18/2025 11:38:27 US, transvagi nal 2024 025 [email or web address] [place], [address], [place], [address], 07/18/2025 11:38:27 Medication Orders None recorded. Patient [...] t Case: [id number] Autho marcell g Provi marah: Sarah Amor NP Colle cted: 07/02 1553 Order ing Locat ion: [place] Patho iris Lucas alexandre: 07/03 0742 First Cole n: Ashwini Hurtado , CT Speci men: Cole valente Pap - Image d, Cervi x STATE MENT OF ADEQU ACY: Satis facto ry for evalu ation Trans forma tion zone compo nent prese nt ----- ----- ----- ----- ----- ----- ----- ----- ----- ----- ----- ----- ----- ----- ----- ----- ----- ---- FINAL DIAGN OSIS: Negat lonnie for Intra epith elial Dre rowley or Milad jones (NIL) . 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 Not Available [facility] (Lab) [address] [facility], [place], [address], 07/05/2025 14:21:18 07/17/20 25 07/17/2025 US, ernesto s No observ ation record ed. [facility] [address] [facility] [address], [place], [address], 07/17/2025 18:14:30 07/17/20 25 07/17/2025 US, trans timothy al No observ ation record ed. [facility] [address] [facility] [address], [place], [address], 07/17/2025 18:14:39 07/17/2007/17/2025 US, pelvi s No observ ation record ed. [email or web address] [address], [place], [address], 07/18/2025 16:29:15 Result Notes None recorded. Procedures Surgical History Date Name Laterality Status Provider Name and Address Organization Details Recorded Time 12/03/20 25 Date of Last Mammogram completed Mallory Starks [facility] 07/26/2025 12:04:00 excision of mass of neck completed [facility] 07/02/2025 11:16:24 section completed [facility] 07/02/2025 11:16:34 section completed [facility] 07/02/2025 11:16:40 tonsillectomy completed [facility] 07/02/2025 11:16:49 Imaging Results None recorded. Procedure Notes None recorded. Medical Equipment None Reported. Allergies Allergen ID Allergen Name Allergen Category Reaction Reaction Severity Criticality Documentation Date Start Date Code Code System Note Provider Name and Address Organization Details Recorded Time 06316 cyclobenz aprine hydrochlo ride medicatio n itching severe high 06/07/2025 18779 RxNorm Zunilda lisa [facility] 11:33:12 51300 tramadol medicatio n Not available Not available Not available 07/09/2025 23348 RxNorm Not Available [employer] - prod 13:58:25 54534 cyclobenz aprine hydrochlo ride medicatio n itching severe high 07/09/2025 61284 RxNorm Not Available [employer] - prod 13:58:25 44174 citalopra m medicatio n nausea mild high 07/09/20252015 2556 RxNorm Not Available kali [employer] - prod 13:58:25 Medications Name [...] Available Not Available No t Available Vitals None Recorded Social History Question Answer Notes LastModified by Organizat ion Details LastModified Time Tobacco Smoking Status Former Smoker Zunilda lisa, [facility] 06/07/2025 11:40:56 Do You Have An Advance Directive? No [email or web address] Information n ot available 06/07/2025 Are You Blind Or Do You Have Difficulty Seeing? No nnztly18 Information n ot available 06/07/2025 What Is Your Level Of Caffeine Consumption? Moderate chrftu11 Information not available 06/07/2025 In The 14 Days Before Symptom Onset, Have You Had Close Contact With A Laboratory-confirm ed COVID-19 While That Case Was Ill? No [email or web address] Information n ot available 06/07/2025 In The 14 Days Before Symptom Onset, Have You Had Close Contact With A Person Who Is Under Investigation For COVID-19 While That Person Was Ill? No yuyckn67 Information not available 06/07/2025 Have You Been To An Area Known To Be High Risk For COVID-19? No [email or web address] Information not available 06/07/2025 Are You Deaf Or Do You Have Serious Difficulty Hearing? No pkvunp62 Information not available 06/07/2025 What Type Of Diet Are You Following? REGULAR gwlduh73 Information n ot available 06/07/2025 What Is The Highest Grade Or Level Of School You Have Completed Or The Highest Degree You Have Received? [id number] exzhkg96 Information not available 06/07/2025 Are There Any Guns Present In Your Home? No yabkox44 Information not available 06/07/2025 What Is Your Current Pack Years? 30ormorepacky ears Information not available 06/07/2025 Do You Use Protection During Sex? No zejybo47 Information not available 06/07/2025 Do You Use Your Seat Belt Or Car Seat Routinely? Yes ckelis81 Information not available 06/07/2025 Are You Sexually Active? Yes Information not available 06/07/2025 Do You Have Smoke And Carbon Monoxide Detectors In Your Home? Yes omxtsk66 Information not available 06/07/2025 At What Age Did You Start Smoking Tobacco? 13 Information not available 06/07/2025 How Much Tobacco Do You Smoke? 0.5 PPD evtiuh10 Information not available 06/07/2025 Do You Use Sunscreen Routinely? Yes wlyjxv04 Information not available 06/07/2025 Has Tobacco Cessation Counseling Been Provided? No yffwif07 Information not available 06/07/2025 How Many Years Have You Smoked Tobacco? 30 smsymh63 Information not available 06/07/2025 Do You Have Difficulty Walking Or Climbing Stairs? No vfieae67 Information not available 06/07/2025 Sex: Unknown Functional Status Question Answer Note LastModified by Organizat ion Details LastModified Time Do you use any illicit or recreational drugs? No fnnohy55 Information not available 06/07/2025 Do you or have you ever used any other forms of tobacco or nicotine? No aopoxd12 Information not available 06/07/2025 What is your level of alcohol consumption? None rogixg76 Information not available 06/07/2025 Are you currently employed? No ydxmhg33 Information not available 06/07/2025 Are you able to walk independently without assistance or assistive devices? YESWOREST anaise33 Information not available 06/07/2025 Are you able to care for yourself independently? Yes pemlln31 Information not available 06/07/2025 Do you have difficulty dressing, bathing, grooming, or toileting? No dyyywt08 Information not available 06/07/2025 Mental Status Question Answer Note LastModified by Organization D etails LastModified Time Do you feel stressed (tense, restless, nervous, or anxious, or unable to sleep at night)? NF86031-2 btpibw08 Information not available 06/07/2025 Family History Relationship Description Onset Age of this Age Resolved Age Notes LastModified by Organization Details LastModified Time Maternal Aunt Malignant neoplasm of breast Not available 2024 11:14:15 Mother Malignant neoplasm of colon fisikas48 Not available 2024 11:14:28 Maternal Grandmother Malignant neoplasm of colon qwiqbqg87 Not available 2024 11:14:28 Paternal Grandmother Myocardial infarction jhgxena75 Not available 07/02 11:15:07 Father Schizophreni a ewdsiip40 Not available 2024 11:15:17 Medical History Condition [...] ICD10 Code Diagnosis IMO Codes Diagnosis Note [id number] Sarah МАРИНА Amor [place] [address] [address] 07/02/2025 10:51:23 07/02/2025 16:23:42 Gynecologic examination [id number] Z01.384 [id number] WWEB - declined, she is scheduled for TLH, [...] been answered. Mass of left breast 1224 248634 [id number] N63.20 [id number] Records request faxed for recent diagnostic breast imagingref erral placed to breast specialist [id number] Eugenio Mccrary MD [place] [address] [address] 07/17/2025 15:28:51 07/17/2025 16:23:32 Menorrhagia [id number] N92.0 [id number] This patient is a 45-year-ol d female [...] Member ID Guzmán Member ID Guarantor Name 07/17/2025 1 [facility] - DOS ON OR AFTER 21 (MEDICAID REPLACEMENT - HMO) Silvia Acup [id number] Silvia Acup OBGyn Episode No OBEpisode recorded.
--- OUTSIDE RECORDS SUMMARY | 2025-07-31 03:29 | XMS_ITS | Clinical Summary ---
Author Organization [facility] Address [address] [place] [address] Phone Care Team Providers Care [employer] Name Role Phone Mary Adler MD Primary Care Provider Social History Tobacco Use Types Packs/Day Years Used Date Smoking Tobacco: Never Assessed Comments Unknown Sex and Gender Information Value Date Recorded Sex Assigned at Not on file Legal Sex Female 11:54 AM CDT Gender Identity Not on file Sexual Orientation Not on file Plan of Treatment Health Maintenance Due Date Last Done Comments Hepatitis C Virus (HCV) Screening 1981 Varicella Immunization (1 of 2 - 13+ 2-dose series) 1994 Hepatitis B Immunization (1 of 3 - 19+ 3-dose series) 02/25/2000 Pap Smear 2002 Human Papillomavirus (HPV) Immunization (1 - 3-dose SCDM series) 02/25/2008 Cervical Cancer Screening (CCS) 2011 HPV/Cotest 2011 Influenza Immunization (#1) 2025 SARS-COV-2 Immunization ( season) 2025 09/12/2021, 08/22/2021, 09/12/2020 Mammogram 03/16/2026 03/16/2025, 06/08/2023 Respiratory Syncytial Virus (RSV) Immunization (Adult) (1 - 1-dose 75+ series) 02/25/2056 DTaP/Tdap/Td Immunization Discontinued 10/30/2019 TdaP Immunization Completed 10/30/2019 Discussion re Starting/Frequency of Mammograms Completed 03/16/2025, 06/08/2023 Meningococcal Immunization (ACWY) Aged Out No longer eligible based on patient's age to complete this topic Pneumococcal Immunization Combined Aged Out No longer eligible based on patient's age to complete this topic Rotavirus Immunization Aged Out No lo nger eligible based on patient's age to complete this topic Procedures Procedure Name Priority Date/Time Associated Diagnosis Comments AYDE SCREENING BILATERAL DIGITAL W CAD W JEISON Routine 03/16/2025 3:04 PM CDT Encounter for screening mammogram for malignant neoplasm of breast from Last 3 Months or Most Recently Relevant to Health Maintenance Results * AYDE SCREENING BILATERAL DIGITAL W CAD W JEISON (03/16/2025 3:04 PM CDT) Anatomical Region Laterality Modality breast Bilateral Mammography 03/16/2025 2:33 PM CDT Narrative 03/19/2025 9:56 AM CDT - [facility] SCREENING BILATERAL DIGITAL W CAD W JEISON BILATERAL DIGITAL SCREENING MAMMOGRAM 3D/2D WITH CAD: 03/16/2025 The study was acquired using digital technology and interpreted from soft copy. Current study was also evaluated with ICAD version 7.2. 2D digital mammographic views, as well as 3D digital tomosynthesis were performed in the CC and MLO projections. CLINICAL: Routine screening. Patient has no complaints. She reports a 15 pound weight increase since last mammogram. No personal history of cancer. Maternal aunt had breast cancer. COMPARISONS: Comparison is made to exams dated: 06/08/2023 and 06/17/2023 [facility]. BREAST TISSUE:The breasts are heterogeneously dense, which may obscure small masses. FINDINGS: There is a focal asymmetry in the right breast at 11 o'clock middle depth. This represents a change. There is a mass in the left breast middle depth central to the nipple seen on the mediolateral oblique view only. This is more prominent. No other significant masses or calcifications are seen in either breast. IMPRESSION: INCOMPLETE: NEED ADDITIONAL IMAGING EVALUATION The focal asymmetry in the right breast at 11 o'clock middle depth is indeterminate. Additional views with possible ultrasound are recommended. The mass in the left breast middle depth central to the nipple seen on the mediolateral oblique view only is indeterminate. An ultrasound is recommended. An immediate follow-up is recommended. A letter will be sent to the patient with these results. Electronically signed by: Shirley cintron/penrad:03/16/2025 16:20:42 Channel Man(s): HANNAH Brown)(M), [facility] letter sent: Additional Imaging Reading location: [facility] Mammogram BI-RADS: Category 0: Incomplete: Need Additional Imaging Evaluation Procedure Note Shirley Rosenthal MD - 03/19/2025 - AYDE SCREENING BILATERAL DIGITAL W CAD W JEISON BILATERAL DIGITAL SCREENING MAMMOGRAM 3D/2D WITH CAD: 03/16/2025 The study was acquired using digital technology and interpreted from soft copy. Current study was also evaluated with ICAD version 7.2. 2D digital mammographic views, as well as 3D digital tomosynthesis were performed in the CC and MLO projections. CLINICAL: Routine screening. Patient has no complaints. She reports a 15 pound weight increase since last mammogram. No personal history of cancer. Maternal aunt had breast cancer. COMPARISONS: Comparison is made to exams dated: 06/08/2023 and 06/17/2023 [facility]. BREAST TISSUE:The breasts are heterogeneously dense, which may obscure small masses. FINDINGS: There is a focal asymmetry in the right breast at 11 o'clock middle depth. This represents a change. There is a mass in the left breast middle depth central to the nipple seen on the mediolateral oblique view only. This is more prominent. No other significant masses or calcifications are seen in either breast. IMPRESSION: INCOMPLETE: NEED ADDITIONAL IMAGING EVALUATION The focal asymmetry in the right breast at 11 o'clock middle depth is indeterminate. Additional views with possible ultrasound are recommended. The mass in the left breast middle depth central to the nipple seen on the mediolateral oblique view only is indeterminate. An ultrasound is recommended. An immediate follow-up is recommended. A letter will be sent to the patient with these results. Electronically signed by: Shirley cintron/penrad:03/16/2025 16:20:42 Channel Man(s): HANNAH Brown)(M), [facility] letter sent: Additional Imaging Reading location: [facility] Mammogram BI-RADS: Category 0: Incomplete: Need Additional Imaging Evaluation Mary Adler MD IMG MAMMO ORDERABLES Fi nal Result from Last 3 Months or Most Recently Relevant to Health Maintenance Insurance MEDICAID [employer] Care Teams Agronomy Internship Relationship Specialty Start Date End Date Mary Adler MD [address] [place] [address] PCP - General Internal Medicine 11/10/22
--- OUTSIDE RECORDS SUMMARY | 2025-07-31 03:29 | XMS_ITS | Continuity of Care Document ---
Author Organization [facility] Address [address] [place] [address] Assessment No assessment recorded. Plan of Treatment [...] 09 Autho marcell stone Provi marah: Sarah Amor, JEFFERSON Colle cted: 07/02 1553 Order ing [...] Hurtado , CT on 07/05 at 1308 HIGH [employer]CHO[employer] B[employer] DIRECTOR ----- ----- ----- ----- ----- ----- ----- [...] test with an inher ent false negat lonnei rate. Liqui d-bas ed sampl ing may [...] as clini huyen walker nted. Not Available [facility] (Lab) [address], [place], [address], 07/05/2025 14:21:18 07/17/2007/17/2025 US, pelvi s No observ ation record ed. [facility] [address], [place], [address], 07/17/2025 18:14:30 07/17/2007/17/2025 US, trans vagin al No observ ation record ed. [facility] [address], [place], [address], 07/17/2025 18:14:39 07/17/2007/17/2025 US, pelvi s No observ ation record ed. [email or web address] [address], [place], [address], 07/18/2025 16:29:15 Result Notes None recorded. Procedures Surgical History Date Name Laterality Status Provider Name and Address Organization Details Recorded Time 07/25/20 Date of Last Mammogram completed Mallory Starks [facility] 07/26/2025 12:04:00 excision of mass of neck completed [facility] 07/02/2025 11:16:24 section completed [facility] 07/02/2025 11:16:34 section completed [facility] 07/02/2025 11:16:40 tonsillectomy completed Giulia Liu [facility] 07/02/2025 11:16:49 Imaging Results None recorded. Procedure Notes None recorded. Medical Equipment None Reported. Allergies Allergen ID Allergen Name Allergen Category Reaction Reaction Severity Criticality Documentation Date Start Date Code Code System Note Provider Name and Address Organization Details Recorded Time 37372 cyclobenz aprine hydrochlo ride medicatio n itching severe high 06/07/2025 87525 RxNorm Zunilda lisa [facility] 11:33:12 37446 tramadol medicatio n Not available Not available Not available 07/09/2025 76517 RxNorm Not Available [employer] - prod 13:58:25 72877 cyclobenz aprine hydrochlo ride medicatio n itching severe high 07/09/2025 24020 RxNorm Not Available [employer] - prod 13:58:25 84342 citalopra m medicatio n nausea mild high 07/09/20252015 2556 RxNorm Not Available [employer] - prod 13:58:25 Medications Name [...] Updated DateTime 07/27/2025 172.72 cm 27.7 kg/m2 41525.81 g 151/88 mm[Hg] Mallory Starks [facility] 07/27/2025 09:58:17 Social History Question Answer Notes LastModified by Organizat ion Details LastModified Time Tobacco Smoking Status Former Smoker Zunilda lisa [facility] 06/07/2025 11:40:56 Do You Have An Advance Directive? No yhhjfm84 Information n ot available 06/07/2025 Are You Blind Or Do You Have Difficulty Seeing? No apfnsf30 Information n ot available 06/07/2025 What Is Your Level Of Caffeine Consumption? Moderate tovdlr04 Information not available 06/07/2025 In The 14 Days Before Symptom Onset, Have You Had Close Contact With A Laboratory-confirm ed COVID-19 While That Case Was Ill? No jukrlv84 Information n ot available 06/07/2025 In The 14 Days Before Symptom Onset, Have You Had Close Contact With A Person Who Is Under Investigation For COVID-19 While That Person Was Ill? No pojtfl38 Information not available 06/07/2025 Have You Been To An Area Known To Be High Risk For COVID-19? No pvteel80 Information not available 06/07/2025 Are You Deaf Or Do You Have Serious Difficulty Hearing? No sokyul68 Information not available 06/07/2025 What Type Of Diet Are You Following? REGULAR ajwsqn54 Information n ot available 06/07/2025 What Is The Highest Grade Or Level Of School You Have Completed Or The Highest Degree You Have Received? PK72150-5 udwjuc11 Information not available 06/07/2025 Are There Any Guns Present In Your Home? No pyaqrw59 Information not available 06/07/2025 What Is Your Current Pack Years? 30ormorepacky ears vxjxfu36 Information not available 06/07/2025 Do You Use Protection During Sex? No pqjgge91 Information not available 06/07/2025 Do You Use Your Seat Belt Or Car Seat Routinely? Yes avvupg45 Information not available 06/07/2025 Are You Sexually Active? Yes weknfn51 Information not available 06/07/2025 Do You Have Smoke And Carbon Monoxide Detectors In Your Home? Yes nqqyjm19 Information not available 06/07/2025 At What Age Did You Start Smoking Tobacco? 13 Information not available 06/07/2025 How Much Tobacco Do You Smoke? 0.5 PPD lefaei26 Information not available 06/07/2025 Do You Use Sunscreen Routinely? Yes ofrutf49 Information not available 06/07/2025 Has Tobacco Cessation Counseling Been Provided? No fcruzj19 Information not available 06/07/2025 How Many Years Have You Smoked Tobacco? 30 vmuzqp16 Information not available 06/07/2025 Do You Have Difficulty Walking Or Climbing Stairs? No Information not available 06/07/2025 Sex: Unknown Functional Status Question Answer Note LastModified by Organizat ion Details LastModified Time Do you use any illicit or recreational drugs? No gwirqn48 Information not available 06/07/2025 Do you or have you ever used any other forms of tobacco or nicotine? No unxfis04 Information not available 06/07/2025 What is your level of alcohol consumption? None rvlotv89 Information not available 06/07/2025 Are you currently employed? No jrwywt57 Information not available 06/07/2025 Are you able to walk independently without assistance or assistive devices? YESWOREST Information not available 06/07/2025 Are you able to care for yourself independently? Yes ipdzsv99 Information not available 06/07/2025 Do you have difficulty dressing, bathing, grooming, or toileting? No Information not available 06/07/2025 Mental Status Question Answer Note LastModified by Organization D etails LastModified Time Do you feel stressed (tense, restless, nervous, or anxious, or unable to sleep at night)? TX29982-2 jlyjuq57 Information not available 06/07/2025 Family History Relationship Description Onset Age of this Age Resolved Age Notes LastModified by Organization Details LastModified Time Maternal Aunt Malignant neoplasm of breast dbksmta89 Not available 2024 11:14:15 Mother Malignant neoplasm of colon ypsvict48 Not available 2024 11:14:28 Maternal Grandmother Malignant neoplasm of colon ddjurbb08 Not available 2024 11:14:28 Paternal Grandmother Myocardial infarction ckmtmav33 Not available 07/02 11:15:07 Father Schizophreni a zwahhpv76 Not available 2024 11:15:17 Medical History Condition [...] ICD10 Code Diagnosis IMO Codes Diagnosis Note [id number] Sarah AmorМАРИНА [place] [address] [address] 07/02/2025 10:51:23 07/02/2025 16:23:42 Gynecologic examination 09669804 Z01.604 [id number] WWEBC - declined, she is scheduled for TLH, BS with Dr. Martinez -done todaySTI screen - declinedMa [facility] - n/aRoutine labs - PCPBP [...] been answered. Mass of left breast 1224 729360 [id number] N63.20 [id number] Records request faxed for recent diagnostic breast imagingref erral placed to breast specialist [id number] Eugenio Mccrary MD [place] [address] [address] 07/17/2025 15:28:51 07/17/2025 16:23:32 Menorrhagia [id number] N92.0 [id number] This patient is a 45-year-ol d female [...] minutes on the patient's care in total [id number] Eugenio Mccrary MD [place] [address] [address] 07/26/2025 11:31:54 07/27/2025 16:57:13 [id number] Eugenio Mccrary MD [place] [address] [address] 07/27/2025 09:42:58 07/27/2025 11:30:30 Menorrhagia [id number] N92.0 [id number] This patient is a 45-year-ol d female [...] Member ID Guzmán Member ID Guarantor Name 07/27/2025 1 [facility] - DOS ON OR AFTER 21 (MEDICAID REPLACEMENT - HMO) Silvia Jesus [id number] Silvia Jesus Notes Date Note Type Note [...] is risk of hemorrhage and infection. Eugenio Mccrary MD [address], [place], [address], [facility] 07/27/2025 11:04:44 OBGyn Episode No OBEpisode recorded.
--- OUTSIDE RECORDS SUMMARY | 2025-07-31 03:29 | XMS_ITS | Continuity of Care Document ---
Author Organization [facility] Address [address] [place] [place] [address] Assessment Encounter Date Assessment Date Assessment LastModified by Organization Details LastModified Time 07/02/2025 07/02/2025 Annual gynecological exam performed. [email or web address] Not available 07/02/2025 16:19:10 Plan of Treatment [...] is positive need subtyping 16,18/45 2024 025 [facility] (Lab), [address], [place], [address], 07/05/2025 14:21:18 Referral breast surgery referral 2024 025 BUTLER Akilah Regan MD, [address], [place], [address], 07/25/2025 21:30:27 Procedures None recorded. Surgeries None recorded. Imaging None recorded. Medication Orders None recorded. Patient TargetsNo targets recorded. Patient InstructionsNo instructions recorded. Reason for Referral Breast Surgery Referral for Mass of left breast Referring Physician: Sarah Soares, TITLE I COORDINATOR, Encounter Date: 07/02/2025 Results Created Date Observation [...] marcell stone Provi marah: Sarah Soares, JEFFERSON Stewart cted: 07/02 1553 Order ing Locat ion: [...] ----- ----- ---- FINAL DIAGN OSIS: Negat lonnei for Intra epith elial Dre rowley or Milad jones (NIL) . 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 Not Available [facility] (Lab) [address], [place], [address], 07/05/2025 14:21:18 07/17/20 25 07/17/2025 US, pelvi s No observ ation record ed. [facility] [address], [place], [address], 07/17/2025 18:14:30 07/17/20 25 07/17/2025 US, trans timothy al No observ ation record ed. [facility] [address], [place], [address], 07/17/2025 18:14:39 07/17/2007/17/2025 US, ernesto weiner No observ ation record ed. [email or web address], [place], [address], 07/18/2025 16:29:15 Result Notes None recorded. Procedures Surgical History Date Name Laterality Status Provider Name and Address Organization Details Recorded Time 07/25/20 Date of Last Mammogram completed Mallory Starks [facility] 07/26/2025 12:04:00 excision of mass of neck completed [facility] 07/02/2025 11:16:24 section completed [facility] 07/02/2025 11:16:34 section completed [facility] 07/02/2025 11:16:40 tonsillectomy completed [facility] 07/02/2025 11:16:49 Imaging Results None recorded. Procedure Notes None recorded. Medical Equipment None Reported. Allergies Allergen ID Allergen Name Allergen Category Reaction Reaction Severity Criticality Documentation Date Start Date Code Code System Note Provider Name and Address Organization Details Recorded Time 08665 cyclobenz aprine hydrochlo ride medicatio n itching severe high 06/07/2025 76513 RxNorm [facility] 11:33:12 76796 tramadol medicatio n Not available Not available Not available 07/09/2025 13176 RxNorm Not Available kali - External Data Service - prod 13:58:25 87361 cyclobenz aprine hydrochlo ride medicatio n itching severe high 07/09/2025 09084 RxNorm Not Available kali - External Data Service - prod 13:58:25 06923 citalopra m medicatio n nausea mild high [...] Updated DateTime 07/02/2025 172.72 cm 28 kg/m2 34494 g 161/93 mm[Hg] Giulia Sousaney [facility] 07/02/2025 11:06:32 Social History Question Answer Notes LastModified by Organizat ion Details LastModified Time Tobacco Smoking Status Former Smoker Zunilda lisa, [facility] 06/07/2025 11:40:56 Do You Have An Advance Directive? No [email or web address] Information n ot available 06/07/2025 Are You Blind Or Do You Have Difficulty Seeing? No [email or web address] Information n ot available 06/07/2025 What Is Your Level Of Caffeine Consumption? Moderate [email or web address] Information not available 06/07/2025 In The 14 Days Before Symptom Onset, Have You Had Close Contact With A Laboratory-confirm ed COVID-19 While That Case Was Ill? No [email or web address] Information n ot available 06/07/2025 In The 14 Days Before Symptom Onset, Have You Had Close Contact With A Person Who Is Under Investigation For COVID-19 While That Person Was Ill? No [email or web address] Information not available 06/07/2025 Have You Been To An Area Known To Be High Risk For COVID-19? No Information not available 06/07/2025 Are You Deaf Or Do You Have Serious Difficulty Hearing? No [email or web address] Information not available 06/07/2025 What Type Of Diet Are You Following? REGULAR [email or web address] Information n ot available 06/07/2025 What Is The Highest Grade Or Level Of School You Have Completed Or The Highest Degree You Have Received? [id number] [email or web address] Information not available 06/07/2025 Are There Any Guns Present In Your Home? No Information not available 06/07/2025 What Is Your Current Pack Years? 30ormorepacky ears [email or web address] Information not available 06/07/2025 Do You Use Protection During Sex? No Information not available 06/07/2025 Do You Use Your Seat Belt Or Car Seat Routinely? Yes [email or web address] Information not available 06/07/2025 Are You Sexually Active? Yes [email or web address] Information not available 06/07/2025 Do You Have Smoke And Carbon Monoxide Detectors In Your Home? Yes Information not available 06/07/2025 At What Age Did You Start Smoking Tobacco? 13 [email or web address] Information not available 06/07/2025 How Much Tobacco Do You Smoke? 0.5 PPD [email or web address] Information not available 06/07/2025 Do You Use Sunscreen Routinely? Yes Information not available 06/07/2025 Has Tobacco Cessation Counseling Been Provided? No Information not available 06/07/2025 How Many Years Have You Smoked Tobacco? 30 [email or web address] Information not available 06/07/2025 Do You Have Difficulty Walking Or Climbing Stairs? No [email or web address] Information not available 06/07/2025 Sex: Unknown Functional Status Question Answer Note LastModified by Organizat ion Details LastModified Time Do you use any illicit or recreational drugs? No [email or web address] Information not available 06/07/2025 Do you or have you ever used any other forms of tobacco or nicotine? No [email or web address] Information not available 06/07/2025 What is your level of alcohol consumption? None [email or web address] Information not available 06/07/2025 Are you currently employed? No Information not available 06/07/2025 Are you able to walk independently without assistance or assistive devices? YESWOREST [email or web address] Information not available 06/07/2025 Are you able to care for yourself independently? Yes [email or web address] Information not available 06/07/2025 Do you have difficulty dressing, bathing, grooming, or toileting? No [email or web address] Information not available 06/07/2025 Mental Status Question Answer Note LastModified by Organization D etails LastModified Time Do you feel stressed (tense, restless, nervous, or anxious, or unable to sleep at night)? [id number] [email or web address] Information not available 06/07/2025 Family History Relationship Description Onset Age of this Age Resolved Age Notes LastModified by Organization Details LastModified Time Maternal Aunt Malignant neoplasm of breast [email or web address] Not available 2024 11:14:15 Mother Malignant neoplasm of colon [email or web address] Not available 2024 11:14:28 Maternal Grandmother Malignant neoplasm of colon [email or web address] Not available 2024 11:14:28 Paternal Grandmother Myocardial infarction [email or web address] Not available 07/02 11:15:07 Father Schizophreni a [email or web address] Not available 2024 11:15:17 Medical History Condition [...] ICD10 Code Diagnosis IMO Codes Diagnosis Note [id number] Eugenio Gomez MD [place] [address] [address] 06/07/2025 11:16:04 06/07/2025 12:07:48 Menorrhagia [id number] N92.0 [id number] This patient is a 45-year-ol d female [...] minutes on the patient's care in total [id number] МАРИНА Luciano [place] [address] [address] 07/02/2025 10:51:23 07/02/2025 16:23:42 Gynecologic examination [id number] Z01.927 [id number] WWEBC - declined, she is scheduled for [...] been answered. Mass of left breast 1224 [id number] N63.20 [id number] Records request faxed for recent diagnostic breast imagingref erral placed to breast specialist Health Concerns Section Related Observation LastModified by Organization Detai ls LastModified Time None Recorded Concern Status LastModified by Organization Details LastModified Time None Recorded Payers Encounter Date Sequence Insurance Name Policy Number Policy Guzmán Covered Member ID Guzmán Member ID Guarantor Name 07/02/2025 1 [facility] - DOS ON OR AFTER 21 (MEDICAID REPLACEMENT - HMO) Silvia Acup [id number] Silvia Acup Notes Date Note Type Note Provider Name and Address Organization Details Recorded Time 5 text/html Annual GYNReported by PatientGenitourinary symptomsFor [...] to f/u with breast specialist) needs referral. Sarah Soares, МАРИНА [address], [place], [address], [facility] 07/02/2025 16:20:54 OBGyn Episode No OBEpisode recorded.
--- OUTSIDE RECORDS SUMMARY | 2025-07-31 03:29 | XMS_ITS | Clinical Summary ---
Author Organization [facility] Address [address] [place] [address] Care Team Providers Care Dope Dry House Operator Name Role Phone Mary Adler MD Primary Care Provider Mary Adler MD Unavailable [phone] Yelena Bobo MD Unavailable [phone] Allergies Active Allergy Reactions Criticality Noted Date Comments Citalopram Nausea only Low 04/10/2016 Tramadol Other (See comments) Low 10/30/2019 Medications multivit with minerals/lutein (MULTIVITAMIN 50 PLUS ORAL) multivitamin Act lonnie vit-iron fum-folic ac ( Vitamin) 27 mg iron- 0.8 mg tablet daily Active aspirin 81 mg enteric coated tablet daily Active escitalopram (LEXAPRO) 10 mg tablet Take 10 mg by mouth daily Active Vitamin Plus Low Iron 27 mg iron- 1 mg tablet 0 Active acetaminophen 500 mg capsuleIndicati ons:Pain Take 2 capsules (1,000 mg total) by mouth every 6 (six) hours as needed (pain) 60 tablet 1 0 Active ibuprofen (ADVIL,MOTRIN) 600 mg tablet Take 1 tablet (600 mg total) by mouth every 8 (eight) hours as needed for pain 60 tablet 1 0 Active polyethylene glycol (Miralax) 17 gram packetIndicatio ns:constipation Take 1 packet (17 g total) by mouth daily 15 packet 2 0 Active docusate sodium (Colace) 100 mg capsuleIndicati ons:constipatio n Take 1 capsule (100 mg total) by mouth 2 (two) times a day 60 capsule 1 0 Active oxyCODONE (ROXICODONE) 5 mg immediate release tabletIndicatio ns:Pain Take 1 tablet (5 mg total) by mouth every 4 (four) hours as needed for pain For severe breakthrough pain 15 tablet 0 Active NIFEdipine (PROCARDIA XL/ADALAT CC) 90 mg 24 hr tablet Take 1 tablet (90 mg total) by mouth daily 30 tablet 11 0 Active enoxaparin (LOVENOX) 40 mg/0.4 mL syringeIndicati ons:Deep Vein Thrombosis Prevention Inject 0.4 mL (40 mg total) under the skin daily 42 Syringe 0 Active Active Problems Problem Noted Date Diagnosed Date delivery delivered 12/27/2019 Poor growth affecting management of mother in third trimester 12/11/2019 Overview (12/11/2019): - New IUGR 4%ile 2354g @ 37w2d on 12/11/19. Normal TIANNA, normal Doppler, BPP 03/30 - Due to new onset IUGR at term with concern for preE, BP elevated above baseline at 142/88 and 2+ protein on urine dip Recommend patient present to L&D for delivery. Advised to be NPO. care following delivery 11/22 Overview (12/13/2019): # ID: Afebrile. No signs/symptoms of infection. # Heme: EBL 600 mL. No symptoms acute blood loss anemia. # Tobacco Use: receiving nicotine patch # CV/Pulm: Chronic hypertension w/ SI PreE w/ SF: baseline UPC 0.3, admit labs with UPC 0.3, otherwise unremarkable. BPs well controlled now on N90XL and patient s/p mg. [facility] # GI/: Tolerating PO. Voiding spontaneously. # Pain: Controlled with above regimen. # Post DVT prophylaxis: Patient has the following moderate risk factors: Age>35, Preeclampsia, Major current illness (Lupus AC+) and Smoker. Her post prophylaxis plan is Prophylactic Lovenox due to presence of 3 or more moderate risk factors. #Lupus AC+: S/p APLS testing on 10/31/19. For repeat testing at PP follow-up. # MOC: Desires interval BTL, declines bridge # MOF: Formula feeding # Disposition: Desires discharge home today Abnormal chest x-ray 11/19/2019 Overview (11/22/2019): Persistent cough CXR 10/30: No active cardiac or pulmonary disease. Right hilar and right perihilar nodularity believed to be granulomatous in origin. Discussed with pulmonology on 11/20, as patient is asymptomatic and no longer coughing, a pulm consult is not needed [ ] Quantiferon gold (ordered 11/20) Anemia 10/30/2019 Depressive disorder 10/30/2019 Disorder of lipid metabolism 10/30/2019 Essential hypertension 10/30/2019 Sinusitis 10/30/2019 Tobacco smoking affecting in third tri mester 10/30/2019 Overview (10/31/2019): Patient currently smokes 1/2 PPD. We discussed that smoking during increases both maternal and risks. Cessation recommended -Continue to monitor and address History of pre-eclampsia in prior , currently in third trimester 10/30/2019 Overview (11/14/2019): - Low dose ASA (pt taking it BID per primary OB instructions) - Baseline labs 10/31/19 UPC 0.3, AST 17, ALT 11, Creat 0.68 Chronic hypertension affecting 020 Overview (11/22/2019): Chronic hypertension on nifedipine 60mg Diagnosed at 22 History of PreE in 2011 On LDA 10/31/19 UPC 0.3, AST 17, ALT 11, Creat 0.68 - Reports BP controlled at home, usually 140/80 Recommend BP log Continue growth US Recommend surveillance at 32 weeks (ordered) Anxiety and depression 10/30/2019 Overview (11/14/2019): Patient endorses depression and anxiety for which she had been on Lexapro (pt things the dose is 10 mg - still has pills at home) and was well controlled on this for the past 8 years. Patient endorses she stopped this medication when she found out she was approx. 2 months ago. Discussed risks and benefits. Patient wishes to restart medication at this time. -continue lexapro -mood check q visit -close PP f/u Multigravida of advanced maternal age in third t rimester 10/30/2019 Overview (10/30/2019): - Declines genetic testing. Prior with demise and current pr egnancy 10/25/2019 Overview (12/06/2019): Pt endorses demise at 24 weeks on 12/14/2000 in [place]. Pt endorses that the cord was missing the gel part around the cord and the cord was broke. 10/30: APLS testing ordered, lupus anticoagulant positive 11/05: Records reviewed: 25wks by dates, IUFD measuring ~18wks. IOL -> delivered, macerated, normal appearing fetus. Velamentous cord insertion. Genetic workup declined. Lab workup including lupus anticoagulant negative Plan - Due to prior negative lupus anticoagulant in 2015 and the fact that she is already third trimester, will continue ASA only at this time - Recommend prophylactic lovenox especially if she has - Plan for retesting 12 weeks from 10/30 Prior uterine surgery 10/25/2019 Overview (12/06/2019): Prior for breech presentation on 06/29/2011. Delivered at [facility]. 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 Surgery performed: resection of uterine septum, and unification of uterine didelphys at endometrial cavity Path: 10g tissue, myometrium Speculum exam without clear evidence of two cervical ostia, although difficult to assess at 31 weeks. A/P -Given this, anatomy of her uterus is unclear, as is what procedure was performed. -Op note refers to photographs that were taken - requested from [facility] -Likely reflects more simple operation (ie, septum resection) rather than true didelphys surgery, and therefore delivery timing should be 39 weeks after discussion with MFM group. Supervision of high-risk , unspecified trimester 10/25/2019 Overview (12/13/2019): - Complete care with MFM - Labs: Patient ordered for 3 hour and third trimester labs (not yet performed), - Follow up: Sent to L&D for delivery due to new IUGR and concern for preE [x] Full MFM Care; Referring Provider: Yelena Bobo [phone] [x] Dating Criteria: LMP 05/20/19 SHAKILA 02/24/20 [x] Labs: GC [Neg/Neg] Lab Results Component Value Date ABORH O Positive 10/31/2019 IDCOOMB Negative 10/31/2019 [id number] Nonreactive 10/31/2019 LABRPR Nonreactive 10/31/2019 RUBELIGG Reactive 10/31/2019 HEPBSAG Nonreactive 10/31/2019 [x] Genetic Screening: declined [x] UCx: Gram positive rolando [x] Pap: 05/23/2019 WNL per pt (need records) [x] LD ASA (if indicated) starting at 12 weeks: currently taking 81 mg BID 2nd Tri Labs: [] Anatomy ultrasound: [x] CBC[11.7/35.2/351K]/1hr gtt at 24-28wks [169] [] 3H GTT ordered 11/01/2019: Patient never performed. [] Flu Shot (Apr-Jul): [x] Tdap (27-36wks): 10/29/2013 3rd Tri Labs: [] CBC/HIV/RPR/T&S: [x] GBS: negative [] GC/CT (if indicated): Counselling [x] MOD: Repeat on 12/11/19 [x] Place of delivery: [facility] [x] US plan: serial growth (cHTN) [x] testing: NST at 32wks (cHTN) [x] MOC: Considering tubal ligation - signed 11/20, pt has own copy [x] Method of feeding: [] Tower Hand: [] PP Depression Discussed: Nicotine dependence 06/15/2019 Decreased hearing 02/22/2018 Resolved Problems Problem Noted Date Diagnosed Date Resolved Date Fatigue 10/30/2019 10/30/2019 Immunizations Immunization Administration Dates Next Due Tdap 10/30/2019 Tetanus Toxoid, Unspecified 08/24/2011 Surgical History Surgery Date Site/Laterality Comments SECTION, LOW TRANSVERSE Medical History Medical History Date Comments History of IUFD Chronic hypertension Smoker Depression Anxiety Social History Tobacco Use Types Packs/Day Years Used Date Smoking Tobacco: Every Day Cigarettes Tobacco Cessation:Ready to Q uit: No; Counseling Given: Yes Alcohol Use Standard Drinks/Week Comments Not Currently 0 (1 standard drink = 0.6 oz pur e alcohol) Comments No Sex and Gender Information Value Date Recorded Sex Assigned at Not on file Legal Sex 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 Gender Identity Not on file Sexual Orientation Not on file Occupation 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 Not on file Not on file Not on f ile Obstetrics History Para Term AB IAB SAB Ectopic Multiple Livin g Live Births 4 3 2 1 1 1 0 2 2 Date Outcome GA Total Labor Labor/2nd/3rd Weight Sex Type Anes PTL Elizabeth A1 A5 Name Clin 1996 SAB 8w0 d 2000 24w 0d Vag-S pont Demis e 2010 Term 37w 6d F CS-LT ranv Livin g Complications:Breech 2019 Term 37w 2d 0h 02m 0h 02m 2.41 kg (5 lb 5 oz) M CS-LT ranv Spinal N Livin g 8 9 ACUP, BOYSA Kelsie Hudson MD Complications: Nicky gurjit Hypertension Delivery Location:[facility] Main C ampus ([facility] L AND D PROCEDURE) Comments 2000 loss: was told not to h ave sex, then weeks later had IUFD? Was then told there was no jelly around the cord and there was a cord accident Does not know further details Uterine surgery at time of 2010 CS - see op note/MFM note for details Last Filed Vital Signs Vital Sign Reading Time Taken Comments Blood Pressure 132/80 12/27/2019 9:59 AM CDT Pulse 77 12/27/2019 9:59 AM CDT Temperature 36.3 C (97.3 F) 12/27/2019 9:59 AM CDT Respiratory Rate 18 12/13/2019 7:11 AM CDT Oxygen Saturation 97% 12/27/2019 9:59 AM CDT Inhaled Oxygen Concentration - - Weight 76.4 kg (168 lb 6.4 oz) 12/27/2019 9:59 A M CDT Height 172.7 cm (5' 8) 12/27/2019 9:59 AM CDT Body Mass Index 25.61 12/27/2019 9:59 AM CDT Plan of Treatment Not on file Insurance [facility] Advance Directives For more information, please contact: [phone] * Full Code (Latest Code Status on File) Date Activated Date Inactivated Comments 12/12/2019 12:32 AM 12/13/2019 8:01 PM * Full Code Date Activated Date Inactivated Comments 12/11/2019 5:25 PM 12/12/2019 12:32 AM Full CPR in case of cardiopulmonary arrest Care Teams Dope Dry House Operator Relationship Specialty Start Date End Date Mary Adler MD [address] [address] PCP - General 11/01/19 Mary Adler MD [address] [address] 10/31/19 Yelena Bobo MD [address] [place] [address] [place], [place] [id number] Referring Physician Obstetrics and Gynecology 10/10/19
[2025-07-31] MEDS: LACTATED RINGERS 1,000 ML 30 ML IV CONT ×2 (06:55→09:36)
[2025-07-31] MEDS: ACETAMINOPHEN 500 MG TABLET 1000 MG PO ×3 (06:55→19:50)
[2025-07-31] MEDS: KETOROLAC 15 MG/ML VIAL (*BKC) IV PUSH (06:55)
--- NOTE | 2025-07-31 06:57 | WPDANESEPPF ---
Anes - Initial Pre Proc Eval Procedure: Operation Date: 07/31/25 07:30 Proposed Procedures p Robotic Assisted Hysterectomy with Bilateral Salpingectomy - Eugenio Gomez MD Date/Time: 07/31/25 06:57 Surgeon: Eugenio Gomez MD Pre Op Diagnosis: menorrhaghia with regular cycles Patient Data Age: 45 Gender: F Height: 1.73 m Weight: 82.1 kg Allergies Allergy/AdvReac Type Severity Reaction Status Date / Time ondansetron (From Zofran) Allergy Intermediate Hives Verified 07/25/25 12:55 tramadol AdvReac Intermediate Itching Verified 07/25/25 12:55 Home Medications ?Medication ?Instructions ?Recorded ?Confirmed ?Type atorvastatin 40 mg tablet (Lipitor) 40 mg PO DAILY 07/25/25 07/25/25 History cetirizine 10 mg tablet (24Hour 10 mg PO DAILY PRN allergy symptoms 07/25/25 07/25/25 History Allergy) diphenhydramine HCl 25 mg capsule 25 mg PO HS allergies 07/25/25 07/25/25 History (Allergy (diphenhydramine)) escitalopram oxalate 20 mg tablet 20 mg PO DAILY 07/25/25 07/25/25 History (Lexapro) [id number]-lqq-fjdu 18 mg-FA 400 1 tablet PO DAILY 07/25/25 07/25/25 History mcg-calcium 500 mg-vit K 50 mcg tablet (Women's Multivitamin) nifedipine 60 mg tablet,extended 60 mg PO DAILY 07/25/25 07/25/25 History release 24 hr (Procardia XL) nifedipine 90 mg tablet,extended 90 mg PO DAILY 07/25/25 07/25/25 History release 24 hr Patient hx anesthesia problems: none Family hx anesthesia problems: none Results Review: All pre-operative results and documents have been reviewed as part of the pre-operative evaluation. [facility] Social History Social History Smoking packs per day: 0.5 Smoking cigarettes per day: 10.0 Years smoked: 31 Smoking pack-years: 15.50 Smoking status: Current every day smoker Tobacco type: cigarettes Alcohol intake: never Substance use: current Substance use type: marijuana Other substance usage details: multiple times a day Lack of Transportation: No Lack of Food: Never True Current Housing: I Have Housing Concerned About Future Housing: No Difficulty Paying Gas/Electric Bills: No Difficulty Paying for Meds: No Currently Unemployed: No Education: Don't Know Difficulty w/ Childcare or Family Care: No Living arrangements: with family Spiritual care concerns: No Anes - Eval Final PreProcedure Day of Procedure 07/31/25 06:57 Patient weight: overweight Heart: regular rate and rhythm Lungs: clear to auscultation Airway: Mallampati scale class II and special considerations poor dentition Neurological: alert and oriented Last oral intake: >/= 8 hours ASA classification: III Emergent: no Anesthetic plan: proceed Anesthesia type and monitoring: general ETT and standard monitoring Results Review: All pre-operative results and documents have been reviewed as part of the pre-operative evaluation. Informed Consent: The patient's anesthetic plan and its attendant risks and benefits were discussed with the patient/family/POA. Questions were solicited and answers provided to the satisfaction of the patient/family/POA.
--- NOTE | 2025-07-31 07:11 | WPDHPUPDATE1 ---
History and Physical Update Update Date/Time: 07/31/25 07:11 History and Physical has been reviewed, including an updated exam of the patient. There are NO changes in the patient's condition. Risks, benefits, and alternatives have been discussed and questions answered. Patient agrees to proceed with procedure.
[2025-07-31 07:22] LABS: BEDSIDEPREGUCG Negative (Negative)
[2025-07-31] MEDS: ceFAZolin 2 GM in SODIUM CHLORIDE 0.9% IV 50 ML 100 ML IVPB (07:29)
--- NOTE | 2025-07-31 08:38 | S_PTH ---
PATIENT: Silvia Jesus LOC: [facility] U#:[id number] AGE/SX: 45/F ROOM: RE07/31/[address]: Eugenio Gomez MD : 1980 BED: DIS: 08/01/2025 SPEC #: [id number] RECD: 07/31/25 09:51 STATUS: PIERCE RE #: [id number] SATINDER: 07/31/25 08:[address]: Eugenio Gomez DEPT: [facility] Surgical RECD BY: Terrie Scherer MLT, ([facility]) ENTERED: 07/31/25 09:51 SP TYPE: Surgical OTHR DR: Mary Adler, MJody Tissues: A - Uterus B - Peritoneum Procedures: Hematoxylin and Eosin Stain Gross and Microscopic Level 4 Gross and Microscopic Level 5
[2025-07-31] MEDS: METHYLENE BLUE 0.5% INJ 10 ML AMPULE IV PUSH (09:01)
[2025-07-31] MEDS: oxyCODONE HCL (*CRX) 5 MG TAB IR PO (12:32)
--- NOTE | 2025-07-31 12:38 | P.OP_ITS ---
Procedure Note - Detailed Date of Procedure 07/31/25 Pre-op Diagnosis menorrhaghia with regular cycles Post-op Diagnosis Same Procedure Performed Robot assisted Total hysterectomy with bilateral salpingectomy. Surgeon Eugenio Gomez MD Anesthesia General Indications heavy vaginal bleeding, pelvic pain Findings Mildly enlarged uterus, normal-appearing tubes and ovaries. Description of Procedure This patient was taken to the operating room. She was prepped and draped in the dorsal lithotomy position after induction of general anesthesia. The uterine manipulator and Adriano cup were placed. This was done with a speculum and tenaculum. The speculum was placed. The cervix was grasped with a tenaculum. The stay sutures were placed at 3 and 9:00 a.m.. The stay sutures of 0 Vicryl were tied to the appropriately Size scope after it was slipped around the cervix.. The tip of the SAMUEL manipulator was placed in the intrauterine cavity. The cup was slid into place around the cervix and into the fornices. It was locked into place. The sutures were then wrapped around the handle and tied under tension. A 8 mm skin incision was made in the left upper quadrant the abdomen. a 5 mm Visiport trocar was inserted into abdominal cavity and pneumoperitoneum was achieved. A 8 mm supraumbilical incision was made and a 8 mm trocar was inserted into the intrauterine cavity under direct visualization of the scope. an 8 mm incision was made in the right upper quadrant of the abdomen and an 8 mm robotic trocar was placed the inter uterine cavity under direct visualization the scope. An 11 mm trocar was inserted in the right upper quadrant of the abdomen rectal is a cystoscope after an incision was made there as well. The robot was docked. Electronic Orientation of the robot was performed. Bilateral ureteral lysis was performed. This was done from the pelvic brim down to the uterine artery. This was done with careful dissection using sharp and blunt dissection. The fallopian tubes were removed bilaterally. The mesosalpinx around the fallopian tubes were cauterized transected with LigaSure cautery. This was done in a bilateral fashion from the ovary to the uterine cornua. The fallopian tube was transected at the uterine cornu and amputated. The tube was taken out the left lower quadrant trocar site. In a stepwise fashion along the lateral aspects of the uterus the round ligament and broad ligaments were cauterized transected down to the level of the uterine arteries. A bladder flap was created in the bladder was moved distally to the end of the cervix and over the Adriano cup. The bilateral uterine arteries were cauterized and transected. Colpotomy was then performed. In a circumferential fashion the vagina was transected using unipolar cautery. The incision was made down on the Adriano cup. The uterus and cervix were taken out through the vagina. A pneumo occluder was placed in the vagina. The vaginal cuff was closed with a 0 V lock suture in a running fashion. The pelvis was irrigated with copious amounts antibiotic irrigation. The ureters were again examined and found to be intact and flowing freely under the uterine arteries into the bladder. The bladder was intact. It was examined directly. Cystoscopy was performed after administration of methylene blue. The cystoscope was inserted. Bladder was distended with fluid. The ureteric meatus was ob served bilaterally. Blue fluid was seen to egress bilaterally. The bladder was drained and the cystoscope was withdrawn. The vagina was irrigated with Betadine solution after removal of the Pneumo occluder. the trocars were removed after the robot was undocked. The skin was closed with subacute or Dermabond. The patient was taken to recovery room. She was stable condition. Sponge lap and needle counts were correct x2. Estimated Blood Loss 125 Urine Output 800 Drains Yes Packing No Pathology Yes Complications No immediate complications Condition Stable Disposition Floor
--- NOTE | 2025-07-31 13:05 | OBPPTRN ---
Patient transferred to post room #283 via bed. Support person present. Oriented to unit, room, information board, rooming in, admission packet and security measures. Patient verbalizes understanding.
[2025-07-31] MEDS: DEXTROSE 5%/0.45% SOD CHL 1,000 ML 125 ML IV CONT (14:20)
[2025-07-31] MEDS: SIMETHICONE 80 MG TAB.CHEW PO ×2 (14:20→18:21)
[2025-07-31] MEDS: KETOROLAC 30 MG/ML VIAL (*BKC) IV PUSH (14:20)
[2025-07-31] MEDS: LORATADINE 10 MG TABLET PO (15:46)
[2025-07-31] MEDS: NICOTINE (*PBKC) 21 MG PATCH 1 PATCH TRANSDERM (16:42)
[2025-07-31] MEDS: DOCUSATE SODIUM 100 MG CAPSULE PO (18:21)
[2025-07-31] MEDS: diphenhydrAMINE HCl CAP 25 MG CAPSULE PO (21:45)
[2025-08-01] MEDS: ACETAMINOPHEN 500 MG TABLET 1000 MG PO ×2 (03:50→10:15)
[2025-08-01] MEDS: IBUPROFEN 600 MG TABLET PO ×2 (03:50→10:15)
[2025-08-01 03:55] VITALS: BP 138/82; PULSE 97; RESP 16; TEMP 36.8; O2SAT 100
[2025-08-01 07:45] VITALS: BP 121/79; PULSE 84; RESP 18; TEMP 36.8; O2SAT 99
[2025-08-01] MEDS: DOCUSATE SODIUM 100 MG CAPSULE PO (08:40)
[2025-08-01] MEDS: THERAPEUTIC MULTIVITAMINS/MINERALS TAB (*BKC) 1 TABLET PO (08:40)
[2025-08-01] MEDS: ESCITALOPRAM OXALATE 10 MG TABLET 20 MG PO (08:42)
[2025-08-01] MEDS: SIMETHICONE 80 MG TAB.CHEW PO (08:42)
--- NOTE | 2025-08-01 09:19 | PM.GYNPNOP ---
HOME EXTENSION AGENT - A/P Postoperative Procedures: Procedures Operation Date: 07/31/25 07:30 Actual Procedure Side Surgeon p Robotic Assisted Hysterectomy with Bilateral Salpingectomy Bilateral Eugenio Gomez MD Postoperative day: 1 Postoperative status: doing well Postoperative plan: see orders Time Spent With Patient Time: Total time spent is greater than 50% in coordination of care (as documented) at patient's floor/unit and/or counseling patient: Time with patient: less than 15 minutes HOME EXTENSION AGENT- PN:Subj Post-Op Subjective Date/time seen: 08/01/25 09:19 Subjective: patient reports feeling better, patient has no complaints and pain is well controlled Exam Const: General: healthy appearing, comfortable and no acute distress Resp: Auscultation: clear to auscultation bilaterally, no rales, no rhonchi and no wheezes Cardio: Rate: regular rate Heart sounds: no click, no murmurs and no rubs GI: Inspection: non-distended Auscultation: normal bowel sounds Extrem: General: normal to inspection, no pedal edema and no calf tenderness HOME EXTENSION AGENT - PN: Obj Data Vital Signs Vital Signs: Vital Signs - 24 hr 07/31/25 09:36 07/31/25 09:50 07/31/25 10:05 Temperature 97.4 F L Pulse Rate 84 83 91 Respiratory Rate 26 H 16 22 H Blood Pressure 145/78 H 128/81 137/60 Pulse Oximetry 97 99 98 Oxygen Delivery Simple Face Mask Simple Face Mask Simple Face Mask Oxygen Flow Rate 8 8 8 07/31/25 10:10 07/31/25 10:20 07/31/25 10:35 Temperature 97.3 F L Pulse Rate 90 86 Respiratory Rate 20 18 Blood Pressure 141/79 H 130/80 Pulse Oximetry 94 93 Oxygen Delivery Room Air Room Air Room Air Oxygen Flow Rate 07/31/25 10:40 07/31/25 10:50 07/31/25 11:05 Temperature Pulse Rate 96 98 Respiratory Rate 20 14 Blood Pressure 139/83 131/81 Pulse Oximetry 97 96 Oxygen Delivery Nasal Cannula Nasal Cannula Nasal Cannula Oxygen Flow Rate 2 2 2 07/31/25 11:20 07/31/25 11:35 07/31/25 11:50 Temperature Pulse Rate 85 87 85 Respiratory Rate 19 22 H 18 Blood Pressure 133/81 137/83 123/82 Pulse Oximetry 97 96 97 Oxygen Delivery Nasal Cannula Nasal Cannula Nasal Cannula Oxygen Flow Rate 2 2 2 07/31/25 12:05 07/31/25 12:20 07/31/25 12:35 Temperature Pulse Rate 81 78 87 Respiratory Rate 15 17 14 Blood Pressure 130/82 128/76 126/75 Pulse Oximetry 97 97 97 Oxygen Delivery Nasal Cannula Nasal Cannula Nasal Cannula Oxygen Flow Rate 2 2 2 07/31/25 12:49 07/31/25 13:30 07/31/25 15:42 Temperature 97.2 F L 97.7 F Pulse Rate 76 76 78 Respiratory Rate 20 16 16 Blood Pressure 118/78 133/91 H Pulse Oximetry 98 98 98 Oxygen Delivery Nasal Cannula Room Air Oxygen Flow Rate 2 07/31/25 15:45 07/31/25 19:50 07/31/25 22:55 Temperature 98.2 F 98.0 F 97.9 F Pulse Rate 78 82 84 Respiratory Rate 16 16 16 Blood Pressure 139/82 127/80 136/84 Pulse Oximetry 98 100 99 Oxygen Delivery Oxygen Flow Rate 08/01/25 03:55 Temperature 98.3 F Pulse Rate 97 Respiratory Rate 16 Blood Pressure 138/82 Pulse Oximetry 100 Oxygen Delivery Oxygen Flow Rate Intake/Output Intake/Output: Intake & Output 07/29/25 07/30/25 07/31/25 08/01/25 23:59 23:59 23:59 23:59 Intake Total 550 Output Total 3350 Balance -2800 Meds/Results Medications: Active Medications Generic Name Dose Route Start Last Admin Trade Name Freq PRN Reason Stop Dose Admin Acetaminophen 1,000 mg 07/31/25 13:00 08/01/25 03:50 Acetaminophen 500 Mg Tablet PO 1,000 mg Q6HR LAURA Administration Atorvastatin Calcium 40 mg 08/01/25 09:00 Atorvastatin 40 Mg Tablet PO DAILY LAURA Diphenhydramine HCl 25 mg 07/31/25 21:00 07/31/25 21:45 Diphenhydramine Hcl Cap 25 Mg Capsule PO 25 mg HS LAURA Administration Docusate Sodium 100 mg 07/31/25 17:00 08/01/25 08:40 Docusate Sodium 100 Mg Capsule PO 100 mg BID LAURA Administration Escitalopram Oxalate 20 mg 08/01/25 09:00 08/01/25 08:42 Escitalopram Oxalate 10 Mg Tablet PO 20 mg DAILY LAURA Administration Dextrose/Sodium Chloride 1,000 mls @ 125 mls/hr 07/31/25 12:52 08/01/25 04:17 Dextrose 5% Sodium Chloride 0.45% IV CONT Not Given .Q8H LAURA Ibuprofen 600 mg 08/01/25 06:00 08/01/25 03:50 Ibuprofen 600 Mg Tablet PO 600 mg Q6HR LAURA Administration Loratadine 10 mg 07/31/25 13:00 07/31/25 15:46 Loratadine 10 Mg Tablet PO 10 mg DAILY PRN Administration allergy symptoms Multivitamins/Calcium 1 tablet 08/01/25 09:00 08/01/25 08:40 Therapeutic Multivitamins/Minerals Tab (*Bkc) PO 1 tablet DAILY LAURA Administration Naloxone HCl 0.1 mg 07/31/25 12:52 Naloxone Hcl 0.4 Mg/Ml Vial IV PUSH Q2M PRN Respiratory rate less than 10 Nicotine 1 patch 07/31/25 09:00 07/31/25 16:42 Nicotine (*Pbkc) 21 Mg Patch TRANSDERM 1 patch DAILY LAURA Administration Nifedipine 90 mg 08/01/25 09:00 08/01/25 08:42 Nifedipine 30 Mg Tab.Er.24 PO 90 mg DAILY LAURA Administration Oxycodone HCl 5 mg 07/31/25 12:52 Oxycodone Hcl (*Crx) 5 Mg Tab Ir PO Q4H PRN Pain Rated 4-6 Oxycodone HCl 10 mg 07/31/25 12:52 Oxycodone Hcl (*Crx) 5 Mg Tab Ir PO Q6H PRN Pain Rated 7-10 Simethicone 80 mg 07/31/25 13:15 08/01/25 08:42 Simethicone 80 Mg Tab.Chew PO 80 mg TIDWM LAURA Administration
[2025-08-01] MEDS: oxyCODONE HCL (*CRX) 5 MG TAB IR PO (10:20)
== END 2025-08-01 11:18 | disposition home or self-care (01) ==
LOC: ANHSURGERY 06:05 → ANHOB2 12:55
PROVIDERS: PCP Internal Medicine Infectious Disease; Visit Provider Obstetrics & Gynecology
PROC: (CPT 58571; principal; 2025-07-31 07:30)
DX: N88.8 Other specified noninflammatory disorders of cervix uteri (principal); N80.329 Endometriosis of the posterior cul-de-sac, unspecified depth; N87.9 Dysplasia of cervix uteri, unspecified; N80.03 Adenomyosis of the uterus; N83.8 Other noninflammatory disorders of ovary, fallopian tube and broad ligament; Q51.3 Bicornate uterus; G89.18 Other acute postprocedural pain; I11.9 Hypertensive heart disease without heart failure; I51.9 Heart disease, unspecified; E78.00 Pure hypercholesterolemia, unspecified; F41.9 Anxiety disorder, unspecified; F32.A Depression, unspecified; F17.210 Nicotine dependence, cigarettes, uncomplicated; F12.90 Cannabis use, unspecified, uncomplicated; Z80.3 Family history of malignant neoplasm of breast; Z80.0 Family history of malignant neoplasm of digestive organs; Z82.49 Family history of ischemic heart disease and other diseases of the circulatory system
CPT/HCPCS: 58571; S2900; 88305; 88307; 99199; J0690; A9270; J1100; J1171; J1200; J1885; J2003; J2250; J2704; J3010; J7030; J7120; Q9968